=== PATIENT | male | born 1960 | race African-American/Black ===

== ENCOUNTER → 2016-12-17 | Outpatient (CLI) | payer MEDICARE | LOC: RAD 07:24 | PROVIDERS: ATTEND Nurse Practitioner | DX: N18.3 Chronic kidney disease, stage 3 (moderate) (principal) | CPT/HCPCS: 76770 ==

== ENCOUNTER 2017-01-27 13:39 | Emergency (ER) | payer MEDICARE ==
[2017-01-27] MEDS ORDERED: NORMAL SALINE 1000 ML 1,000 ML IV PRN (14:06)
--- NOTE | 2017-01-27 14:06 | ER Document Report ---
ED Medical Screen (RME) - General Chief Complaint: S/S of Possible Stroke Stated Complaint: CONFUSION,SLURRED SPEECH Time seen by provider: 14:05 Mode of Arrival: Ambulatory Information source: Patient Notes: This is a 56-year-old man with a history of diabetes, HIV and hypertension who presents to the emergency room with 2 day history of generalized weakness, slurred speech and confusion. Patient does report productive cough. He denies any fever or shortness of breath. TRAVEL OUTSIDE OF THE [place] IN LAST 30 DAYS: No - Related Data Allergies/Adverse Reactions: No Known Allergies Allergy (Verified 01/27/17 13:46) Past Medical History - Social History Frequency of alcohol use: None Drug Abuse: None - Past Medical History Cardiac Medical History: Reports: Hx Hypertension Endocrine Medical History: Reports: Hx Diabetes Mellitus Type 2 Renal/ Medical History: Denies: Hx Peritoneal Dialysis Infectious Medical History: Reports: Hx HIV Past Surgical History: Reports: Hx Orthopedic Surgery - Right hip - Immunizations Hx Diphtheria, Pertussis, Tetanus Vaccination: Yes Physical Exam - Vital signs Vitals: Temp Pulse Resp BP Pulse Ox 98.9 F 63 18 170/92 H 99 01/27/17 13:46 01/27/17 13:46 01/27/17 13:46 01/27/17 13:46 01/27/17 13:46 Course - Vital Signs Vital signs: Temp Pulse Resp BP Pulse Ox 98.9 F 63 18 170/92 H 99 01/27/17 13:46 01/27/17 13:46 01/27/17 13:46 01/27/17 13:46 01/27/17 13:46
--- NOTE | 2017-01-27 15:27 | ER Document Report ---
ED General - General Time seen by provider: 14:53 Mode of Arrival: Ambulatory Information source: Patient, Relative - spouse TRAVEL OUTSIDE OF THE [place] IN LAST 30 DAYS: No - HPI Onset: Other - Refer to HPI notes Associated symptoms: Weakness Similar symptoms previously: No Recently seen / treated by doctor: No <KESHA ANGULO - Last Filed: 01/27/17 19:18> <HAYLEETRAE SAHU - Last Filed: 01/27/17 21:28> - General Chief Complaint: S/S of Possible Stroke Stated Complaint: CONFUSION,SLURRED SPEECH Notes: Patient is a 56-year-old male patient presenting to the emergency department for 2 days of weakness, decreased motor skills, and slurred speech. Patient states that he has been sleeping on and off for the past 2 days. Patient is having some difficulty with moving his hands. Spouse states the patient has had difficulty completing easy tasks such as eating a sandwich. Patient states he had some blurry vision and shortness of breath along with his chronic dry cough. Patient denies any fever, chest pain, nausea, vomiting, diarrhea, headache, bloody stool or dysuria. Patient denies any new medications or dosage changes to his current medications. Patient has a history of hypertension, diabetes mellitus (insulin dependent) , and HIV. Patient states his last viral load was undetectable and was 2 months ago and his CD4 count was 200. Patient's primary care physician is Dr. Royal Lynne with [facility]. (KESHA ANGULO) - Related Data Allergies/Adverse Reactions: No Known Allergies Allergy (Verified 01/27/17 13:46) Past Medical History - General Information source: Patient, Relative - spouse - Social History Smoking Status: Current Every Day Smoker Chew tobacco use (# tins/day): No Frequency of alcohol use: Rare Drug Abuse: None Family History: None Patient has suicidal ideation: No Patient has homicidal ideation: No - Past Medical History Cardiac Medical History: Reports: Hx Hypertension Endocrine Medical History: Reports: Hx Diabetes Mellitus Type 2 Infectious Medical History: Reports: Hx HIV Past Surgical History: Reports: Hx Orthopedic Surgery - Right hip - Immunizations Hx Diphtheria, Pertussis, Tetanus Vaccination: Yes <KESHA ANGULO - Last Filed: 01/27/17 19:18> Review of Systems - Review of Systems Constitutional: See HPI, Weakness EENT: See HPI, Blurred vision Cardiovascular: No symptoms reported Respiratory: See HPI, Cough, Short of breath Gastrointestinal: No symptoms reported Genitourinary: No symptoms reported Male Genitourinary: No symptoms reported Musculoskeletal: See HPI Skin: No symptoms reported Hematologic/Lymphatic: No symptoms reported Neurological/Psychological: See HPI -: Yes All other systems reviewed and negative <ZACHKESHA REARDON - Last Filed: 01/27/17 19:18> Physical Exam <KESHA ANGULO - Last Filed: 01/27/17 19:18> <TRAE MAURER - Last Filed: 01/27/17 21:28> - Vital signs Vitals: Temp Pulse Resp BP Pulse Ox 98.9 F 63 18 170/92 H 99 01/27/17 13:46 01/27/17 13:46 01/27/17 13:46 01/27/17 13:46 01/27/17 13:46 - Notes Notes: GENERAL: Alert, interacts well. No acute distress. HEAD: Normocephalic, atraumatic. EYES: Pupils equal, round, and reactive to light. Extraocular movements intact. ENT: Oral mucosa moist, tongue midline. NECK: Full range of motion. Supple. Trachea midline. LUNGS: Clear to auscultation bilaterally, no wheezes, rales, or rhonchi. No respiratory distress. HEART: Regular rate and rhythm. No murmurs, gallops, or rubs. ABDOMEN: Soft, non-tender. Non-distended. Bowel sounds present in all 4 quadrants. EXTREMITIES: Moves all 4 extremities spontaneously. No edema, radial and dorsalis pedis pulses 2/4 bilaterally. No cyanosis. NEUROLOGICAL: Alert and oriented x3. Normal speech. Cranial nerves II through XII grossly intact. PSYCH: Normal affect, normal mood. SKIN: Warm, dry, normal turgor. No rashes or lesions noted. (KESHA ANGULO) Course - Laboratory Result Diagrams: 01/27/17 16:46 01/27/17 16:46 <KESHA ANGULO - Last Filed: 01/27/17 19:18> - Laboratory Result Diagrams: 01/27/17 16:46 01/27/17 16:46 <TRAE MAURER - Last Filed: 01/27/17 21:28> - Re-evaluation Re-evalutation: 01/27/17 19:13 CBC unremarkable, coags normal, renal function slightly improved since last visit, glucose elevated 317, no anion gap, no evidence of DKA. Chest x-ray shows no acute process, EKG is nonischemic, CT scan of the head with and without contrast does not show any bleeding or any signs of infection such as toxoplasmosis. NIH stroke scale is 0. No evidence of acute stroke syndrome. Cardiac enzymes are negative. Last viral load was undetectable and last CD4 count was normal as per patient report. At present family states that the patient is confused and is having difficulty carrying out activities of daily living however the patient was able to ambulate in the emergency department, he was able cooperate with finger-nose and feet-hy-opnj testing, he had no slurred speech, he was alert and oriented 3 , I see no evidence of any neurologic deficit at this time. Discussed with family that they do need to follow up as an outpatient for further workup. No indication for admission at this time. Patient does have a primary care physician whom they will see tomorrow. (TRAE MAURER) - Vital Signs Vital signs: Temp Pulse Resp BP Pulse Ox 98.4 F 56 L 16 182/95 H 97 01/27/17 19:36 01/27/17 19:36 01/27/17 19:36 01/27/17 19:36 01/27/17 19:36 - Laboratory Laboratory results interpreted by me: 01/27/17 01/27/17 16:46 16:46 Eosinophils % 7.3 H Absolute Eosinophils 0.7 H BUN 35 H Creatinine 1.40 H Est GFR (Non-Af Amer) 53 L Glucose 317 H Creatine Kinase 181 H - EKG Interpretation by Me Additional EKG results interpreted by me: 01/27/17 19:14 EKG shows sinus rhythm at a rate of 60, normal axis, normal intervals, no ST segment elevations or depressions, no T-wave inversions, there does appear to be left atrial enlargement, no significant change from prior EKG on 09/22/2012 per my interpretation. (TRAE MAURER) Discharge <KESHA ANGULO - Last Filed: 01/27/17 19:18> <TRAE MAURER - Last Filed: 01/27/17 21:28> - Discharge Clinical Impression: Confusion, Type 2 diabetes mellitus with hyperglycemia, with long-term current use of insulin, HIV disease Hypertension Qualifiers: Hypertension type: renovascular hypertension Qualified Code(s): I15.0 - Renovascular hypertension Condition: Stable Disposition: HOME, SELF-CARE Additional Instructions: Please follow up with your primary care physician within the next week. Today your workup only revealed your chronic kidney disease and elevated blood sugar associated with her diabetes. There is no evidence of pneumonia, stroke, heart attack, brain infection or any other cause for confusion. Forms: Elevated Blood Pressure Referrals: PEARL LYNNE FNP [Primary Care Provider] - Follow up in 3-5 days Scribe Attestation: 01/27/17 21:28 I personally performed the services described in the documentation, reviewed and edited the documentation which was dictated to the scribe in my presence, and it accurately records my words and actions. (TRAE MAURER) Scribe Documentation - Scribe Written by Xochilt:: Xochilt Perez, 01/27/17 17:33 acting as scribe for :: Mitchel <KESHA ANGULO - Last Filed: 01/27/17 19:18> ED NIH Stroke Scale - NIH Stroke Scale When completed:: Protocol *: 1. NIH scale should be completed with appropriate accompanying assessment tools. *: 2. The NIH should reflect what the patient is capable of doing and should not be coached by the clinician. 1a. Level of Consciousness: 0=Alert;keenly responsive -: 1=Drowsy -: 2=Obtunded -: 3=Coma/unresponsive or reflex to noxious stimuli. 1a. Responses: 0 1b. Orientation Questions: a. What month is it? -: b. How old are you? -: 0=Answers both questions correctly. -: 1=Answers one question correctly or patient is intubated or has orotracheal trauma. -: 2=Answers neither question correctly. 1b. Responses: 0 1c. Response to commands: a. Open and close eyes? -: b. Refinery Technician and release hand? -: Credit is given despite weakness. Demonstration of task is permitted. Substitute command if hands cannot be used. -: 0=Performs both tasks correctly -: 1=Performs one task correctly -: 2=Performs neither task correctly 1c. Responses: 0 2. Gaze: Establish eye contact and instruct patient to "Follow my finger" -: 0=Normal -: 1=Partial gaze palsy. Gaze is abnormal in one or both eyes, but where forced deviation or total gaze paresis is not present. -: 2=Forced deviation or total gaze paresis. 2. Responses: 0 3. Visual Millard: Sees fingers in all four quadrants. -: 0=No visual loss. -: 1=Partial hemianopsia. -: 2=Complete hemianopsia. -: 3=Bilateral hemianopsia (including Cortical blindness) 3. Responses: 0 4. Facial Movement: Instruct patient to: -: a. Show me your teeth -: b. Raise your eyebrows -: c. Close your eyes -: d. Smile -: 0=Normal symmetrical movement -: 1=Minor paralysis (flattened nasolabial fold, asymmetry on smiling). -: 2=Partial paralysis (total or near total paralysis of lower face). -: 3=Complete paralysis of upper and lower face 4. Responses: 0 5. Motor functions (left arm): Alternate sides and extend each arm with palms down (90 degrees if sitting or 45 degrees for supine). -: 0=No drift;limb holds for full 10 seconds. -: 1=Drift; limb holds but drifts down before full 10 seconds, but does not hit bed. -: 2=Some effort against gravity; limb cannot get to or maintain position. -: 3=No effort against gravity; limb falls. -: 4=No movement. -: UN=Amputation, joint fusion, explain in comments. 5. Responses (left arm): 0 5. Motor Functions (right arm): Alternate sides and extend each arm with palms down (90 degrees if sitting or 45 degrees for supine). -: 0=No drift;limb holds for full 10 seconds. -: 1=Drift; limb holds but drifts down before full 10 seconds, but does not hit bed. -: 2=Some effort against gravity; limb cannot get to or maintain position. -: 3=No effort against gravity; limb falls. -: 4=No movement. -: UN=Amputation, joint fusion, explain in comments. 5. Responses (right arm): 0 6. Motor Functions (left leg): With patient lying supine, alternate sides and extend each leg (30 degrees always while supine). -: 0=No drift, leg holds position for full 5 seconds -: 1=Drift; leg falls before full 5 seconds but does not hit bed. -: 2=Some effort against gravity, leg falls to bed but some effort against gravity. -: 3=No effort against gravity, leg falls to bed immediately. -: 4=No movement. -: UN=Amputation, joint fusion; explain in comments. 6. Responses (left leg): 0 6. Motor Functions (right leg): With patient lying supine, alternate sides and extend each leg (30 degrees always while supine). -: 0=No drift, leg holds position for full 5 seconds -: 1=Drift; leg falls before full 5 seconds but does not hit bed. -: 2=Some effort against gravity, leg falls to bed but some effort against gravity. -: 3=No effort against gravity, leg falls to bed immediately. -: 4=No movement. -: UN=Amputation, joint fusion; explain in comments. 6. Responses (right leg): 0 7. Limb Ataxia: With eyes open instruct patient to: -: a. "Touch your finger to your nose". -: b. "Touch your heel to your obando" -: 0=Absent -: 1=Present in one limb. -: 2=Present in two limbs. -: UN=Amputation or joint fusion; explain in comments. 7. Responses: 0 8. Sensory: Test sensation using pinprick or noxious stimuli. Test as many body parts as possible. -: 0=Normal;no sensory loss -: 1=Mile to moderate sensory loss (patient feels pin prick but is less sharp on affected side). -: 2=Severe or total sensory loss. 8. Responses: 0 9. Best Language: Instruct patient to: -: a. "Describe what you see in this picture." -: b. "Name the items in this picture." -: c. "Read these sentences." -: 0=No aphasia, normal -: 1=Mild to moderate aphasia. -: 2=Severe aphasia -: 3=Mute, global aphasia, no usable speech or auditory comprehension. 9. Responses: 0 10. Articulation, Dysarthia: Instruct patient to: -: "Read these words" or "Repeat these words" -: 0=Normal -: 1=Mild to moderate; patient may slur some words but can be understood without difficulty. -: 2=Severe; patients speech so slurred as to be unintelligible in the absence of dysphasia. -: UN=Intubated or other physical barrier, explain in comments. 10. Responses: 0 11. Extinction or inattention: 0=No abnormality -: 1= Visual, tactile, auditory, spatial, or personal inattention or extinction to bilateral simulation in one or the sensory modalities. -: 2=Profound ashley-inattention or ashley-inattention to more than one modality; does not recognize own hand. 11. Responses: 0 Total Score: 0 <KESHA ANGULO - Last Filed: 01/27/17 19:18>
--- NOTE | 2017-01-27 16:35 | EKG REPORT ---
SEVERITY:- NORMAL ECG - SINUS RHYTHM : Confirmed by: Phani Castellon MD 27-Jan-2017 16:35:18
[2017-01-27 17:07] LABS: PROTHROMBIN TIME 11.7 SEC (11.4-15.4)
[2017-01-27 17:09] LABS: ABSOLUTE BASOPHILS # (AUTO) 0.1 10^3/uL (0.0-0.2); ABSOLUTE EOSINOPHILS # (AUTO) 0.7 10^3/uL (0.0-0.6); ABSOLUTE LYMPHOCYTES (AUTO) 2.1 10^3/uL (0.5-4.7); ABSOLUTE MONOCYTES (AUTO) 0.4 10^3/uL (0.1-1.4); ABSOLUTE NEUT (AUTO) 5.8 10^3/uL (1.7-8.2); BASOPHILS % (AUTO) 0.8 % (0-2); EOSINOPHILS % (AUTO) 7.3 % (0-6); HEMATOCRIT 43.4 % (37.9-51.0); HEMOGLOBIN 14.3 g/dL (13.5-17.0); HGB HCT DIFFERENCE -0.5; MEAN CORPUSCULAR HEMOGLOBIN 30.5 pg (27.0-33.4); MEAN CORPUSCULAR VOLUME 92 fl (80-97); MONOCYTES % (AUTO) 3.9 % (3-13); RED CELL DISTRIBUTION WIDTH 13.9 % (11.5-14.0)
[2017-01-27 17:26] LABS: ALANINE AMINOTRANSFERASE 39 U/L (21-72); ALBUMIN 3.6 g/dL (3.5-5.0); ALKALINE PHOSPHATASE 69 U/L (38-126); ANION GAP 9 (5-19); ASPARTATE AMINO TRANSFERASE 28 U/L (17-59); BILIRUBIN,DIRECT 0.4 mg/dL (0.0-0.4); BILIRUBIN,TOTAL 0.5 mg/dL (0.2-1.3); BLOOD UREA NITROGEN 35 mg/dL (7-20); CALCIUM 9.5 mg/dL (8.4-10.2); CARBON DIOXIDE 24 mmol/L (22-30); CHLORIDE 107 mmol/L (98-107); GLUCOSE 317 mg/dL (75-110); POTASSIUM 4.7 mmol/L (3.6-5.0); SODIUM 140.4 mmol/L (137-145)
[2017-01-27 17:27] LABS: CREATINE KINASE 181 U/L (55-170); TOTAL PROTEIN 6.9 g/dL (6.3-8.2)
[2017-01-27 17:38] LABS: CREATINE KINASE MB 1.18 ng/mL (<4.55)
[2017-01-27 17:41] LABS: TROPONIN I < 0.012 ng/mL
[2017-01-27 19:39] VITALS: BP 182/95
== END 2017-01-27 19:39 | disposition home or self-care (01) ==
LOC: ER 13:39
DX: R41.0 Disorientation, unspecified (principal); E11.65 Type 2 diabetes mellitus with hyperglycemia; B20 Human immunodeficiency virus [HIV] disease; I15.0 Renovascular hypertension; R53.1 Weakness; R47.81 Slurred speech; F17.200 Nicotine dependence, unspecified, uncomplicated; Z79.4 Long term (current) use of insulin
CPT/HCPCS: 93005; 99285; 96360; 36415; 82553; 82550; 85025; 85610; 80053; 84484; 71010; 70470; 93010; J7030

== ENCOUNTER 2017-02-04 13:00 | Inpatient (IN) | payer MEDICARE ==
--- NOTE | 2017-02-04 13:58 | ER Document Report ---
ED General - General Chief Complaint: Low Blood Sugar Stated Complaint: ALTERED MENTAL STATUS Mode of Arrival: Medic TRAVEL OUTSIDE OF THE [place] IN LAST 30 DAYS: No - HPI Notes: 56-year-old male history of HIV and chronic pain syndrome, diabetes presents for excessive somnolence. He has been seen and hospitalized here then hospitalized last week in [place] with no cause found. Patient has been sleeping excessively today his family was unable to wake him up over approximate 2 hour period of time. They have already discontinued morphine. It sounds like he is not eating as much as he is supposed to be as well. When EMS arrived he was somnolent was noted to have a blood sugar of 55. He was given a half amp of D50. His family states he just does not seem right and this is been going on now for a couple of weeks. They reported negative MRI at [place]. No other recent illness otherwise. Family reports seizure-like activity with him moaning and yelling out with stiffness, apparently diaphoretic and mouth was clenched. EMS reported incontinence of urine. Patient currently has no other symptoms or complaints. - Related Data Allergies/Adverse Reactions: No Known Allergies Allergy (Verified 02/04/17 13:12) Past Medical History - Social History Smoking Status: Current Every Day Smoker Frequency of alcohol use: None Drug Abuse: None Family History: None - Past Medical History Cardiac Medical History: Reports: Hx Hypertension Endocrine Medical History: Reports: Hx Diabetes Mellitus Type 2 Renal/ Medical History: Denies: Hx Peritoneal Dialysis Infectious Medical History: Reports: Hx HIV Past Surgical History: Reports: Hx Orthopedic Surgery - Right hip - Immunizations Hx Diphtheria, Pertussis, Tetanus Vaccination: Yes Review of Systems - Review of Systems -: Yes All other systems reviewed and negative Physical Exam - Vital signs Vitals: Temp Pulse Resp BP Pulse Ox 98.6 F 82 20 163/88 H 96 02/04/17 13:03 02/04/17 13:03 02/04/17 13:03 02/04/17 13:03 02/04/17 13:03 - Notes Notes: GENERAL: VS as per nursing doc. then somewhat cachectic male in no acute distress. HEAD: Atraumatic, normocephalic. EYES: Pupils equal round and reactive to light, extraocular movements intact, sclera anicteric, no conjunctival injection or discharge. ENT: Nares patent, oropharynx clear without exudates. Moist mucous membranes. NECK: Normal range of motion, supple, no carotid bruits. LUNGS: Breath sounds clear to auscultation bilaterally and equal. No wheezes rales or rhonchi. HEART: Normal S1S2. Regular rate and rhythm without murmurs. Equal peripheral pulses. ABDOMEN: Soft, non-tender. EXTREMITIES: Normal range of motion. No calf tenderness. Negative Homans. No edema. Chronic right foot drop NEUROLOGICAL: GCS 15, Cranial nerves II-XII intact. Normal visual king. Normal speech without aphasia. No pronator drift. 5/5 RUE strength, 5/5 RLE strength, 5/5 LUE strength, 5/5 LLE strength. No cerebellar abnormalities including normal finger-nose testing. Negative Babinski, 1+= DTR refelexes. PSYCH: Normal mood, normal affect. SKIN: Warm, Dry, no cyanosis, Cap refill < 2 sec. Course - Re-evaluation Re-evalutation: 02/04/17 15:[address] Novak from the hospitalist service and they will admit the patient as an inpatient for endoscopically and seizure. Reviewed records from [place] and there was some nonspecific T2 FLAIR abnormality in the conor region. Discussed findings with the patient and family. His blood sugar was 50 on his chemistries he has eaten now and appears to be coming up. Would consider with his excessive somnolence that he will need to cut back on his oral and insulin diabetic dosing. - Vital Signs Vital signs: Temp Pulse Resp BP Pulse Ox 99.4 F 92 18 146/82 H 95 02/04/17 15:19 02/04/17 15:19 02/04/17 15:19 02/04/17 15:19 02/04/17 15:19 - Laboratory Result Diagrams: 02/04/17 14:30 02/04/17 14:30 Laboratory results interpreted by me: 02/04/17 02/04/17 02/04/17 13:04 14:15 14:30 WBC 16.7 H Seg Neutrophils % 86.3 H Lymphocytes % 9.3 L Absolute Neutrophils 14.4 H BUN Creatinine Glucose POC Glucose 113 H Urine Protein 100 H Urine Blood SMALL H 02/04/17 02/04/17 14:30 15:20 WBC Seg Neutrophils % Lymphocytes % Absolute Neutrophils BUN 30 H Creatinine 1.26 H Glucose 50 L POC Glucose 172 H Urine Protein Urine Blood - EKG Interpretation by Me EKG shows normal: Sinus rhythm - Rate 84, normal sinus rhythm, no clear ischemia Discharge - Discharge Clinical Impression: Encephalopathy, Seizure Condition: Fair Disposition: ADMITTED INPATIENT Admitting Provider: Dr. Novak Unit Admitted: Telemetry Referrals: STACY,CHRISSY KANG [Primary Care Provider] - Follow up as needed
[2017-02-04 14:29] LABS: APPEARANCE,URINE CLEAR; BILIRUBIN,URINE NEGATIVE (NEGATIVE); GLUCOSE, URINE NEGATIVE (NEGATIVE); KETONES,URINE NEGATIVE (NEGATIVE); LEUKOCYTE ESTERASE,URINE NEGATIVE (NEGATIVE); NITRITE,URINE NEGATIVE (NEGATIVE); PROTEIN,URINE 100 mg/dL (NEGATIVE); URINE SPECIFIC GRAVITY 1.012; UROBILINOGEN,URINE NEGATIVE mg/dL (<2.0)
[2017-02-04 14:54] LABS: ABSOLUTE BASOPHILS # (AUTO) 0.1 10^3/uL (0.0-0.2); ABSOLUTE EOSINOPHILS # (AUTO) 0.1 10^3/uL (0.0-0.6); ABSOLUTE LYMPHOCYTES (AUTO) 1.5 10^3/uL (0.5-4.7); ABSOLUTE MONOCYTES (AUTO) 0.5 10^3/uL (0.1-1.4); ABSOLUTE NEUT (AUTO) 14.4 10^3/uL (1.7-8.2); BASOPHILS % (AUTO) 0.5 % (0-2); EOSINOPHILS % (AUTO) 0.7 % (0-6); HEMATOCRIT 43.1 % (37.9-51.0); HEMOGLOBIN 14.3 g/dL (13.5-17.0); HGB HCT DIFFERENCE -0.2; LYMPHOCYTES % (AUTO) 9.3 % (13-45); MEAN CORPUSCULAR HEMOGLOBIN 30.2 pg (27.0-33.4); MEAN CORPUSCULAR HGB CONC 33.1 g/dL (32.0-36.0); MEAN CORPUSCULAR VOLUME 92 fl (80-97); MONOCYTES % (AUTO) 3.2 % (3-13); RED BLOOD COUNT 4.72 10^6/uL (4.35-5.55); RED CELL DISTRIBUTION WIDTH 13.7 % (11.5-14.0); SEGMENTED NEUTROPHILS % (AUTO) 86.3 % (42-78); WHITE BLOOD COUNT 16.7 10^3/uL (4.0-10.5)
[2017-02-04 15:14] LABS: ALANINE AMINOTRANSFERASE 32 U/L (21-72); ALBUMIN 3.8 g/dL (3.5-5.0); ALKALINE PHOSPHATASE 62 U/L (38-126); ANION GAP 14 (5-19); ASPARTATE AMINO TRANSFERASE 29 U/L (17-59); BILIRUBIN,DIRECT 0.2 mg/dL (0.0-0.4); BILIRUBIN,TOTAL 0.4 mg/dL (0.2-1.3); BLOOD UREA NITROGEN 30 mg/dL (7-20); CARBON DIOXIDE 24 mmol/L (22-30); CHLORIDE 105 mmol/L (98-107); CREATININE RESULT 1.26 mg/dL (0.52-1.25); GLUCOSE 50 mg/dL (75-110); POTASSIUM 4.5 mmol/L (3.6-5.0); SODIUM 142.7 mmol/L (137-145); TOTAL PROTEIN 6.6 g/dL (6.3-8.2)
[2017-02-04] MEDS ORDERED: INSULIN LISPRO 100 UNIT/ML 3 ML VIAL SUBCUT PRN ×2 (15:53→17:28)
[2017-02-04] MEDS ORDERED: DEXTROSE 40% GEL 15 GM TUBE PO PRN ×2 (15:53)
[2017-02-04] MEDS ORDERED: DEXTROSE 50%-WATER 25 GM/50 ML DISP.SYRIN IV PRN ×2 (15:53)
[2017-02-04] MEDS ORDERED: GLUCAGON,HUMAN RECOMB 1 MG INJ IM PRN (15:53)
[2017-02-04] MEDS ORDERED: ONDANSETRON HCL INJ/PF 4 MG/2 ML SDV IV PRN (15:54)
[2017-02-04] MEDS: NORMAL SALINE 1000 ML 1,000 ML IV PRN (17:08)
[2017-02-04] MEDS ORDERED: HYDRALAZINE HCL INJ/PF 20 MG/1 ML SDV IV PRN (17:16)
[2017-02-04] MEDS ORDERED: VANCOMYCIN HCL 0 MG in DEXTROSE 5%-WATER 250 ML IV NR (17:30)
[2017-02-04] MEDS ORDERED: ENOXAPARIN SODIUM INJ 40 MG/0.4 ML DISP.SYRIN SUBCUT ONE (17:30)
--- NOTE | 2017-02-04 17:31 | PDOC H&P ---
History of Present Illness Admission Date/PCP: 02/04/17 15:54 PEARL KUMAR, ORDAINED MINISTER Patient complains of: Confusion, seizure History of Present Illness: ZEYNEP PENDLETON is a 56 year old male with several weeks history of intermittent confusion for which she has been seen at [facility] as well as [facility]. Patient had episode of confusion today and associated seizure. He had a mild headache after seizure. He has not been having headaches prior to that. He has noted chronic fatigue for the past several weeks, nasal congestion, cough. He denies photophobia. He has chronic neck and back pain that is not worse than usual. Patient medical history is complicated by HIV disease for which he is on antiretrovirals. His last CD4 count was on 08/14/2016 which time it was 487. Patient also has insulin-dependent diabetes and was noted to be hypoglycemic today upon evaluation for seizure and altered mental status. His blood glucose was 53. He does have a history of chronic pain with chronic opiate dependence but his states that he has not been on narcotic pain medication since being discharged from the hospital last week. His hospital records from [facility] are reviewed and for the most part are unremarkable. The MRI of his brain did show one small area of abnormal signal in the conor that could represent small vessel disease, but differential could include encephalitis. Past Medical History Cardiac Medical History: Reports: Hypertension Endocrine Medical History: Reports: Diabetes Mellitus Type 2 Infectious Medical History: Reports: HIV Past Surgical History Past Surgical History: Reports: Orthopedic Surgery - Right hip Social History Information Source: Patient, Relative Lives with: Spouse/Significant other Smoking Status: Current Every Day Smoker Frequency of Alcohol Use: None Hx Recreational Drug Use: No Hx Prescription Drug Abuse: No - Advance Directive Resuscitation Status: Full Code Family History Family History: None Parental Family History Reviewed: Yes Children Family History Reviewed: Yes Sibling(s) Family History Reviewed.: Yes Medication/Allergy Home Medications: Duloxetine HCl [Cymbalta] 60 mg PO DAILY 02/04/17 Etravirine [Intelence] 200 mg PO BID 02/04/17 Hydrochlorothiazide 25 mg PO DAILY 02/04/17 Insulin Glargine,Hum.rec.anlog [Toujeo Solostar] 28 unit SQ DAILY 02/04/17 Lisinopril [Prinivil 10 mg Tablet] 10 mg PO DAILY 02/04/17 Lopinavir/Ritonavir [Kaletra 200-50 mg Tablet] 2 each PO Q12 02/04/17 Metformin HCl [Metformin HCl ER] 500 mg PO DAILY 02/04/17 Pregabalin [Lyrica 100 Mg Capsule] 100 mg PO Q8 02/04/17 Raltegravir Potassium [Isentress 400 mg Tablet] 400 mg PO BID 02/04/17 Allergies/Adverse Reactions: No Known Allergies Allergy (Verified 02/04/17 13:12) Review of Systems Constitutional: PRESENT: fatigue, weight loss - Over the course of the past several years. ABSENT: chills, fever(s), headache(s), weight gain Eyes: ABSENT: visual disturbances Ears: ABSENT: hearing changes Cardiovascular: ABSENT: chest pain, dyspnea on exertion, edema, orthropnea, palpitations Respiratory: PRESENT: cough. ABSENT: hemoptysis Gastrointestinal: ABSENT: abdominal pain, constipation, diarrhea, hematemesis, hematochezia, nausea, vomiting Genitourinary: ABSENT: dysuria, hematuria Musculoskeletal: ABSENT: joint swelling Integumentary: ABSENT: rash, wounds Neurological: PRESENT: confusion, convulsions. ABSENT: abnormal gait, abnormal speech, dizziness, focal weakness, syncope Psychiatric: ABSENT: anxiety, depression, homidical ideation, suicidal ideation Endocrine: ABSENT: cold intolerance, heat intolerance, polydipsia, polyuria Hematologic/Lymphatic: ABSENT: easy bleeding, easy bruising Physical Exam Vital Signs: Temp Pulse Resp BP Pulse Ox 99.4 F 92 18 146/82 H 95 02/04/17 15:19 02/04/17 15:19 02/04/17 15:19 02/04/17 15:19 02/04/17 15:19 PHYSICAL EXAM: GENERAL: Appears well, no acute distress, thin/frail HEENT: Normocephalic, no scleral icterus, conjunctiva clear, EOEM intact, PERRLA , moist mucous membranes NECK: trachea midline, no thyromegally RESPIRATORY: Clear to auscultation, no wheezes/rhonchi CARDIAC: Regular rate and rhythm, no murmur/elli/rub ABDOMEN: Soft, no distension, no tenderness, no guarding, normal bowel sounds, negative Rainey sign RECTAL: deferred : deferred EXTREMITIES: No edema, cyanosis, clubbing MUSCULOSKELETAL: No joint swelling or deformity VASCULAR: normal peripheral pulses NEUROLOGIC: Alert, oriented to person/place/time, normal speech, cranial nerves grossly intact, 5/5 strength in all extremities, tactile sensation intact in all extremities. No nuchal rigidity SKIN: No rash, no wounds, no worrisome skin lesions PSYCHIATRIC: Normal mood, unusual affect Results Laboratory Results: Labs- All tests 24 hr 02/04/17 02/04/17 02/04/17 13:04 14:15 14:30 WBC 16.7 H RBC 4.72 Hgb 14.3 Hct 43.1 MCV 92 MCH 30.2 MCHC 33.1 RDW 13.7 Plt Count 267 Seg Neutrophils % 86.3 H Lymphocytes % 9.3 L Monocytes % 3.2 Eosinophils % 0.7 Basophils % 0.5 Absolute Neutrophils 14.4 H Absolute Lymphocytes 1.5 Absolute Monocytes 0.5 Absolute Eosinophils 0.1 Absolute Basophils 0.1 Sodium Potassium Chloride Carbon Dioxide Anion Gap BUN Creatinine Est GFR ( Amer) Est GFR (Non-Af Amer) Glucose POC Glucose 113 H Calcium Total Bilirubin Direct Bilirubin Indirect Bilirubin Neonat Total Bilirubin AST ALT Alkaline Phosphatase Total Protein Albumin Urine Color YELLOW Urine Appearance CLEAR Urine pH 5.0 Ur Specific [place] 1.012 Urine Protein 100 H Urine Glucose (UA) NEGATIVE Urine Ketones NEGATIVE Urine Blood SMALL H Urine Nitrite NEGATIVE Urine Bilirubin NEGATIVE Urine Urobilinogen NEGATIVE Ur Leukocyte Esterase NEGATIVE Urine WBC (Auto) 1 Urine RBC (Auto) 1 Squamous Epi Cells Auto <1 Urine Mucus (Auto) RARE Urine Ascorbic Acid NEGATIVE 02/04/17 02/04/17 14:30 15:20 WBC RBC Hgb Hct MCV MCH MCHC RDW Plt Count Seg Neutrophils % Lymphocytes % Monocytes % Eosinophils % Basophils % Absolute Neutrophils Absolute Lymphocytes Absolute Monocytes Absolute Eosinophils Absolute Basophils Sodium 142.7 Potassium 4.5 Chloride 105 Carbon Dioxide 24 Anion Gap 14 BUN 30 H Creatinine 1.26 H Est GFR ( Amer) > 60 Est GFR (Non-Af Amer) > 60 Glucose 50 L POC Glucose 172 H Calcium 9.0 Total Bilirubin 0.4 Direct Bilirubin 0.2 Indirect Bilirubin Not Reportable Neonat Total Bilirubin Not Reportable AST 29 ALT 32 Alkaline Phosphatase 62 Total Protein 6.6 Albumin 3.8 Urine Color Urine Appearance Urine pH Ur Specific [place] Urine Protein Urine Glucose (UA) Urine Ketones Urine Blood Urine Nitrite Urine Bilirubin Urine Urobilinogen Ur Leukocyte Esterase Urine WBC (Auto) Urine RBC (Auto) Squamous Epi Cells Auto Urine Mucus (Auto) Urine Ascorbic Acid Impressions: Head CT 02/04/17 00:00 IMPRESSION: INFLAMMATORY CHANGES RIGHT MAXILLARY SINUS. OTHERWISE, NORMAL BRAIN CT WITHOUT CONTRAST. Chest X-Ray 02/04/17 15:52 IMPRESSION: NO ACUTE RADIOGRAPHIC FINDING IN THE CHEST. Assessment & Plan - Diagnosis (1) Encephalopathy Is this a current diagnosis for this admission?: YesPlan: Exact etiology not clear. Possibly related to hypoglycemia and/or seizure. Patient's medical history is somewhat complicated however given HIV status of the things must be considered such as encephalitis. Particularly given the fact that patient had findings on MRI from [facility] that showed abnormal signal in the conor suggestive of small vessel disease versus encephalitis. Check lumbar puncture. Head CT shows no acute process. Given patient's poor nutritional status I would like to start thiamine supplementation. I would like to check TSH, B-12 level. Medications/polypharmacy may be contributing. Medications that can contribute to altered mental status include opiate pain medications, Lyrica, Cymbalta. Nothing by mouth status. IV fluids for now. Resume oral intake after lumbar puncture. (2) Seizure Is this a current diagnosis for this admission?: Yes (3) Leukocytosis Is this a current diagnosis for this admission?: YesPlan: Cover empirically for meningitis/encephalitis given altered mental status, leukocytosis, seizure, HIV status. Start IV Rocephin, IV ampicillin, IV vancomycin, IV acyclovir. Check lumbar puncture. Chest x-ray negative. Urinalysis negative. (4) Hypoglycemia Is this a current diagnosis for this admission?: YesPlan: Hold Lantus. Monitor blood glucose to 2 hours while patient is nothing by mouth for lumbar puncture. (5) Insulin dependent diabetes mellitus Is this a current diagnosis for this admission?: Yes (6) HIV (human immunodeficiency virus infection) Is this a current diagnosis for this admission?: YesPlan: Continue HIV medications. Repeat CD4 count and viral load. (7) Hypertension Is this a current diagnosis for this admission?: YesPlan: Hold lisinopril for now. When necessary IV hydralazine. (8) Chronic pain Is this a current diagnosis for this admission?: YesPlan: Patient has reportedly been off opiate medicines since recent admission to [facility] last week. Continue Lyrica and Cymbalta. - Time Time Spent: Greater than 70 Minutes Anticipated discharge: Home
[2017-02-04] MEDS ORDERED: NICOTINE 14 MG/24 HR PATCH.TD24 TD ONE (17:45)
[2017-02-04] MEDS ORDERED: CEFTRIAXONE 2 GM/D5W RTU 2 GM/50 ML RTUPB IV SCH (18:00)
[2017-02-04] MEDS ORDERED: (PENDING PHARMACY ID) (Etravirine [Intelence] 200 MG) PO SCH (18:00)
[2017-02-04] MEDS ORDERED: CEFTRIAXONE 1 GM/D5W RTU 1 GM/50 ML RTUPB IV SCH (18:00)
[2017-02-04 18:28] LABS: PROTHROMBIN TIME 12.4 SEC (11.4-15.4)
[2017-02-04 18:29] LABS: PARTIAL THROMBOPLASTIN TIME 29.2 SEC (23.5-35.8)
[2017-02-04] MEDS: HYDROMORPHONE HCL INJ/PF 2 MG/ML AMPULE IV PRN ×2 (18:51→23:24)
[2017-02-04] MEDS ORDERED: VANCOMYCIN HCL 1,000 MG in DEXTROSE 5%-WATER 250 ML IV ONE (20:00)
--- NOTE | 2017-02-04 20:37 | EKG REPORT ---
SEVERITY:- BORDERLINE ECG - SINUS RHYTHM CONSIDER INFERIOR INFARCT : Confirmed by: María Lawrence 04-Feb-2017 20:36:29
[2017-02-04] MEDS: PREGABALIN 100 MG CAPSULE PO SCH (21:47)
[2017-02-04] MEDS: LOPINAVIR/RITONAVIR 200-50 MG TABLET PO SCH (21:47)
[2017-02-04] MEDS: AMPICILLIN SODIUM 1.5 GM in NORMAL SALINE 100 ML IV SCH (21:47)
[2017-02-04] MEDS: ACYCLOVIR SODIUM 750 MG in NORMAL SALINE 250 ML IV SCH (21:48)
[2017-02-04] MEDS: RALTEGRAVIR POTASSIUM 400 MG TABLET PO SCH (22:40)
[2017-02-04 23:19] LABS: APPEARANCE,URINE CLEAR; BILIRUBIN,URINE NEGATIVE (NEGATIVE); GLUCOSE, URINE NEGATIVE (NEGATIVE); KETONES,URINE NEGATIVE (NEGATIVE); LEUKOCYTE ESTERASE,URINE NEGATIVE (NEGATIVE); NITRITE,URINE NEGATIVE (NEGATIVE); PROTEIN,URINE 100 mg/dL (NEGATIVE); URINE SPECIFIC GRAVITY 1.012; UROBILINOGEN,URINE NEGATIVE mg/dL (<2.0)
[2017-02-04 23:34] LABS: URINE BARBITURATES SCREEN NEGATIVE; URINE METHADONE SCREEN NEGATIVE; URINE PHENCYCLIDINE SCREEN NEGATIVE
[2017-02-04 23:53] LABS: URINE OPIATES LOW UNCONFIRMED POSITIVE
[2017-02-05] MEDS: AMPICILLIN SODIUM 1.5 GM in NORMAL SALINE 100 ML IV SCH ×4 (02:48→21:23)
[2017-02-05] MEDS: PREGABALIN 100 MG CAPSULE PO SCH ×3 (05:31→21:23)
[2017-02-05] MEDS: ACYCLOVIR SODIUM 750 MG in NORMAL SALINE 250 ML IV SCH ×3 (05:31→21:23)
[2017-02-05 07:19] LABS: ABSOLUTE BASOPHILS # (AUTO) 0.1 10^3/uL (0.0-0.2); ABSOLUTE EOSINOPHILS # (AUTO) 0.4 10^3/uL (0.0-0.6); ABSOLUTE LYMPHOCYTES (AUTO) 1.4 10^3/uL (0.5-4.7); ABSOLUTE MONOCYTES (AUTO) 0.4 10^3/uL (0.1-1.4); ABSOLUTE NEUT (AUTO) 6.6 10^3/uL (1.7-8.2); BASOPHILS % (AUTO) 0.7 % (0-2); EOSINOPHILS % (AUTO) 4.1 % (0-6); HEMATOCRIT 37.3 % (37.9-51.0); HGB HCT DIFFERENCE 1.7; LYMPHOCYTES % (AUTO) 15.6 % (13-45); MEAN CORPUSCULAR HEMOGLOBIN 31.2 pg (27.0-33.4); MEAN CORPUSCULAR HGB CONC 34.7 g/dL (32.0-36.0); MEAN CORPUSCULAR VOLUME 90 fl (80-97); MONOCYTES % (AUTO) 4.8 % (3-13); RED BLOOD COUNT 4.15 10^6/uL (4.35-5.55); RED CELL DISTRIBUTION WIDTH 13.6 % (11.5-14.0); SEGMENTED NEUTROPHILS % (AUTO) 74.8 % (42-78); WHITE BLOOD COUNT 8.9 10^3/uL (4.0-10.5)
[2017-02-05 07:38] LABS: ANION GAP 7 (5-19); BLOOD UREA NITROGEN 33 mg/dL (7-20); CALCIUM 8.9 mg/dL (8.4-10.2); CARBON DIOXIDE 27 mmol/L (22-30); CHLORIDE 104 mmol/L (98-107); GLUCOSE 327 mg/dL (75-110); MAGNESIUM 1.8 mg/dL (1.6-2.3); POTASSIUM 4.6 mmol/L (3.6-5.0); SODIUM 137.9 mmol/L (137-145)
[2017-02-05 07:55] LABS: FREE T3 4.05 pg/mL (2.77-5.27)
[2017-02-05 08:08] LABS: THYROID STIMULATING HORMONE 2.37 uIU/mL (0.47-4.68)
[2017-02-05] MEDS: CEFTRIAXONE 2 GM/D5W RTU 2 GM/50 ML RTUPB IV SCH (09:30)
[2017-02-05] MEDS: DULOXETINE HCL 30 MG CAPSULE.DR PO SCH (09:34)
[2017-02-05] MEDS: RALTEGRAVIR POTASSIUM 400 MG TABLET PO SCH ×2 (09:34→21:23)
[2017-02-05] MEDS: LOPINAVIR/RITONAVIR 200-50 MG TABLET PO SCH ×2 (09:35→21:22)
[2017-02-05] MEDS: THIAMINE HCL 100 MG TABLET PO SCH (09:35)
[2017-02-05] MEDS: NICOTINE 14 MG/24 HR PATCH.TD24 TD SCH (09:36)
[2017-02-05] MEDS: HYDROMORPHONE HCL INJ/PF 2 MG/ML AMPULE IV PRN ×3 (09:50→23:06)
[2017-02-05] MEDS: NORMAL SALINE 1000 ML 1,000 ML IV PRN (09:56)
[2017-02-05] MEDS: VANCOMYCIN HCL 750 MG in DEXTROSE 5%-WATER 250 ML IV SCH ×2 (11:22→21:24)
--- NOTE | 2017-02-05 11:56 | Physician Advisory Note ---
Physician Advisor ProgressNote .: Pursuant to the plan for [facility], I have reviewed the medical record for this patient. Physician Advisor Statement: Possible documentation opportunities if attending agrees: 1. "intravascular volume depletion" 2. "stage 2 decub of sacrum, present on adm" [documented by nurse Adm assessment] 3. "suspected protein-calorie malnutrition [state mild, mod, or severe] with BMI 20.7, cachexia, ___ pounds wt loss over ____mo.s/yrs, [?appetite loss, ]" [if possible, give specifics on intake, wt loss, loss of SQ fat & muscle mass, diminished hand net developer strength, & clinical importance such as (A) nutritional assessment ordered, (B) modified diet or supplements ordered, (C) additional labs ordered, (D) prolonged wound healing time, (E) delayed infxn clearance] As always, if concerned about any unstable VS or abnormal labs, please comment on them - what bad things they might indicate, why they concern you - & note what doing about them. Please also document each day the potential clinical problems you are concerned could occur if pt not kept in hospital for tx at this time. (These points are downey - if present in each note, attending's status decision should be sufficiently supported.) Discussion: 56yo male w/ chronic co-morbidities including (+)HIV status w/last CD-4 ct 487, DM-2, HTN, chronic pain, chr opiate dependence, tobacco dependence/abuse, chronic Rt foot drop, reported wt loss over a few yrs - presented 5/15 PM to ED w/persistent excessive somnolence, AMS, already eval' d in hosp x 2 in past couple wks w/out cause found, not eating much, no longer taking morphine by report, episode 02/04 of sz-like activity w/urinary incontinence & clenched mouth. (+) T98.6, HR 82-92, RR18-20, BP 163/88,WBC 16.7, HGb 14.3, plts 267, Na 142.7, K 4.5, bicarb 24, BUN 30, Cr 1.26, glc 50, U/A w/sm bld, 100 pro. CXR (-) acute , CT = inflammatory changes Rt maxillary sinus but otherwise nl. Attending ordered LP, IV Rocephin, Amp, vanc, Acyclovir, IVF x 1L, thiamine, TSH /B12 levels, holding Lantus & lisinopril, continuing Lyrica/Cymbalta, + giving prn IV Dilaudid but no long-acting opioid, UDS, A1C, HIV RNA/CD4/CD8. Status: Pt came in w/prominent leukocytosis, mild tachycardia at times, AMS, & suspected seizure activity. Outside hospital MRI of brain showed abnormality that could suggest encephalitis. Attending apparently quite concerned for encephalitis. Pt started on multiple IV abx to cover for possible encephalitis & subsequent WBC is improved, but dx is not yet confirmed & etiologic agent is not clarified. LP unable to be completed sufficiently for adequate specimens, must be repeated after IVF rehydration. Then of course tests/cx of CSF must be awaited. Pt needing repeated prn Dilaudid. Blood sugars quite unstable - as low as 44 last pm, but now up to 300s as last Lantus dose has worn off. Needs further adjustment of tx acutely. Tx & monitoring in inpatient hospital setting for at least a 2nd MN is medically reasonable & necessary to protect pt's health, safety, & medical condition. Appropriate for Inpt status. Thanks for your help with documentation accuracy/specificity improvement! Rain Freire MD [facility] Physician Advisor, Fellow of Hospital Medicine
[2017-02-05 13:42] LABS: GLUCOSE,CSF 168 mg/dL (40-70)
[2017-02-05 14:12] LABS: APPEARANCE ALL TUBES CLEAR; RBC AVERAGE 18.5; RBC DILUENT USED NONE USED; RBC DILUTION FACTOR 1; RBC SIDE 1 17; RBC SIDE 2 20; TOTAL RBC SQUARES COUNTED 225
[2017-02-05 14:13] LABS: WHITE BLOOD CELL,CSF 2 /uL (0-5)
[2017-02-05 15:31] LABS: CSF CULTURED REQUIRED CSF CULTURE ORDERED (CSFY); H. INFLUENZAE TYPE B AG NEGATIVE (NEGATIVE); S. PNEUMONIAE AG NEGATIVE (NEGATIVE); STREP. GROUP B AG NEGATIVE (NEGATIVE)
[2017-02-05] MEDS: ENOXAPARIN SODIUM INJ 40 MG/0.4 ML DISP.SYRIN SUBCUT SCH (15:43)
[2017-02-05] MEDS: INSULIN GLARGINE,HUM.REC.ANLOG 300 UNIT/3 ML INSULN.PEN SUBCUT SCH (15:44)
--- NOTE | 2017-02-05 15:46 | PDOC PROGRESS REPORT ---
Subjective Progress Note for:: 02/05/17 Subjective:: Patient continues to complain of difficulty thinking, speech difficulty, difficulty with coordination of his hands. He also complains of right hip pain recently. He has a history of trauma to this area. He denies headache, photophobia, fever, chills. Physical Exam Vital Signs: Temp Pulse Resp BP Pulse Ox 98.5 F 74 20 139/70 H 94 02/05/17 07:33 02/05/17 07:33 02/05/17 07:33 02/05/17 07:33 02/05/17 07:33 Intake & Output 02/04/17 02/05/17 02/06/17 06:59 06:59 06:59 Intake Total 2450 Output Total 200 Balance 2250 Weight 63.5 kg GENERAL: No acute distress, thin/frail HEENT: Conjunctiva clear, nonicteric, moist mucous membranes, no JVD, midline trachea RESPIRATORY: Clear to auscultation bilaterally, no wheezes, no rhonchi CARDIAC: Regular rate and rhythm, no murmurs/gallops/rubs ABDOMEN: Soft, nondistended, nontender, positive bowel sounds, no rebound, no guarding EXTREMETIES: No edema, cyanosis, clubbing NEUROLOGIC: Alert, oriented to person/place/time, CN's grossly intact, no focal deficits SKIN: No rash, wounds PSYCH: Normal mood, normal affect Results Laboratory Results: 02/05/17 07:05 02/05/17 07:05 02/04/17 02/05/17 02/05/17 22:45 07:05 07:05 WBC 8.9 RBC 4.15 L Hgb 13.0 L Hct 37.3 L MCV 90 MCH 31.2 MCHC 34.7 RDW 13.6 Plt Count 246 Seg Neutrophils % 74.8 Lymphocytes % 15.6 Monocytes % 4.8 Eosinophils % 4.1 Basophils % 0.7 Absolute Neutrophils 6.6 Absolute Lymphocytes 1.4 Absolute Monocytes 0.4 Absolute Eosinophils 0.4 Absolute Basophils 0.1 Sodium 137.9 Potassium 4.6 Chloride 104 Carbon Dioxide 27 Anion Gap 7 BUN 33 H Creatinine 1.40 H Est GFR ( Amer) > 60 Est GFR (Non-Af Amer) 53 L Glucose 327 H Calcium 8.9 Magnesium 1.8 C-Reactive Protein Vitamin B12 732.0 TSH Free T4 Free T3 pg/mL Urine Color STRAW Urine Appearance CLEAR Urine pH 5.0 Ur Specific [place] 1.012 Urine Protein 100 H Urine Glucose (UA) NEGATIVE Urine Ketones NEGATIVE Urine Blood SMALL H Urine Nitrite NEGATIVE Ur Leukocyte Esterase NEGATIVE Urine WBC (Auto) 0 02/05/17 02/05/17 07:05 07:05 WBC RBC Hgb Hct MCV MCH MCHC RDW Plt Count Seg Neutrophils % Lymphocytes % Monocytes % Eosinophils % Basophils % Absolute Neutrophils Absolute Lymphocytes Absolute Monocytes Absolute Eosinophils Absolute Basophils Sodium Potassium Chloride Carbon Dioxide Anion Gap BUN Creatinine Est GFR ( Amer) Est GFR (Non-Af Amer) Glucose Calcium Magnesium C-Reactive Protein 14.8 H Vitamin B12 TSH 2.37 Free T4 0.96 Free T3 pg/mL 4.05 Urine Color Urine Appearance Urine pH Ur Specific [place] Urine Protein Urine Glucose (UA) Urine Ketones Urine Blood Urine Nitrite Ur Leukocyte Esterase Urine WBC (Auto) Impressions: Head CT 02/04/17 00:00 IMPRESSION: INFLAMMATORY CHANGES RIGHT MAXILLARY SINUS. OTHERWISE, NORMAL BRAIN CT WITHOUT CONTRAST. Chest X-Ray 02/04/17 15:52 IMPRESSION: NO ACUTE RADIOGRAPHIC FINDING IN THE CHEST. Guidance Fluoroscopy 02/05/17 00:00 IMPRESSION: Lumbar puncture under fluoroscopy. No immediate complication. Lumbar Puncture 02/05/17 09:08 IMPRESSION: Lumbar puncture under fluoroscopy. No immediate complication. Assessment & Plan - Diagnosis (1) Encephalopathy Is this a current diagnosis for this admission?: YesPlan: Exact etiology not clear. Possibly related to hypoglycemia and/or seizure. Patient's medical history is somewhat complicated however given HIV status of the things must be considered such as encephalitis. Particularly given the fact that patient had findings on MRI from [facility] that showed abnormal signal in the conor suggestive of small vessel disease versus encephalitis. I would like to repeat MRI of the brain. Preliminary CSF results show elevated glucose, elevated protein, no white blood cells, no bacteria, negative Linda ink. EEG pending. Head CT shows no acute process. Given patient's poor nutritional status I will continue thiamine supplementation. Normal TSH, B-12 level. Medications/polypharmacy may be contributing. Medications that can contribute to altered mental status include opiate pain medications, Lyrica, Cymbalta. Encephalitis also concerned given patient's history of HIV, CSF findings, previous MRI findings. I will probably need to discuss this with infectious disease once all data is back. (2) Seizure Is this a current diagnosis for this admission?: Yes (3) Leukocytosis Is this a current diagnosis for this admission?: YesPlan: Cover empirically for meningitis/encephalitis given altered mental status, leukocytosis, seizure, HIV status. Continue IV Rocephin, IV ampicillin, IV vancomycin, IV acyclovir. Discuss lumbar puncture results with infectious disease. Chest x-ray negative. Urinalysis negative. (4) Hypoglycemia Is this a current diagnosis for this admission?: YesPlan: Continue to monitor Accu-Cheks after restarting Lantus. (5) Insulin dependent diabetes mellitus Is this a current diagnosis for this admission?: YesPlan: Restart Lantus 25 units daily. Sliding scale insulin coverage. Hemoglobin A1c 7.1. (6) HIV (human immunodeficiency virus infection) Is this a current diagnosis for this admission?: YesPlan: Continue HIV medications. Repeat CD4 count and viral load pending. Patient is followed by Nuha Ward of infectious disease in [facility]. (7) Hypertension Is this a current diagnosis for this admission?: YesPlan: Lisinopril 10 mg daily. When necessary IV hydralazine. (8) Chronic pain Is this a current diagnosis for this admission?: YesPlan: Continue Cymbalta. Continue Lyrica. (9) Right hip pain Is this a current diagnosis for this admission?: YesPlan: Check sedimentation rate, C-reactive protein, MRI of right hip. - Time Time Spent with patient: 35 or more minutes
[2017-02-05] MEDS: ACETAMINOPHEN 325 MG TABLET PO PRN (21:24)
[2017-02-06] MEDS: AMPICILLIN SODIUM 1.5 GM in NORMAL SALINE 100 ML IV SCH ×4 (03:06→22:20)
[2017-02-06] MEDS: ACYCLOVIR SODIUM 750 MG in NORMAL SALINE 250 ML IV SCH ×3 (06:00→22:31)
[2017-02-06] MEDS: PREGABALIN 100 MG CAPSULE PO SCH ×3 (06:00→22:21)
[2017-02-06] MEDS: ENOXAPARIN SODIUM INJ 40 MG/0.4 ML DISP.SYRIN SUBCUT SCH (08:00)
[2017-02-06] MEDS: NICOTINE 14 MG/24 HR PATCH.TD24 TD SCH (10:00)
[2017-02-06] MEDS: RALTEGRAVIR POTASSIUM 400 MG TABLET PO SCH ×2 (10:00→18:00)
[2017-02-06] MEDS: LOPINAVIR/RITONAVIR 200-50 MG TABLET PO SCH ×2 (10:00→22:21)
[2017-02-06] MEDS: DULOXETINE HCL 30 MG CAPSULE.DR PO SCH (10:00)
[2017-02-06] MEDS: CEFTRIAXONE 2 GM/D5W RTU 2 GM/50 ML RTUPB IV SCH (10:00)
[2017-02-06] MEDS: VANCOMYCIN HCL 750 MG in DEXTROSE 5%-WATER 250 ML IV SCH ×2 (10:00→22:31)
[2017-02-06] MEDS: THIAMINE HCL 100 MG TABLET PO SCH (10:00)
[2017-02-06] MEDS: LISINOPRIL 10 MG TABLET PO SCH (10:00)
[2017-02-06] MEDS: INSULIN GLARGINE,HUM.REC.ANLOG 300 UNIT/3 ML INSULN.PEN SUBCUT SCH (13:00)
[2017-02-06] MEDS ORDERED: HYDROCHLOROTHIAZIDE 25 MG TABLET ONE (13:22)
[2017-02-06] MEDS ORDERED: OXYCODONE HCL IR 5 MG TABLET ONE (13:23)
[2017-02-06 16:37] LABS: ABSOLUTE CD 4 HELPER 329 /uL (359-1519); CD BASOPHILS 1 % (.); CD EOSINOPHILS 4 % (.); CD MONOCYTES 5 % (.); CD NEUTROPHILS 73 % (.); HEMATOCRIT . 38.3 % (37.5-51.0); HEMOGLOBIN 12.4 g/dL (12.6-17.7); IMMATURE GRANULOCYTES 0 % (.); LYMPHS(ABSOLUTE) 1.4 x10E3/uL (0.7-3.1); MCH 29.5 pg (26.6-33.0); MCHC 32.4 g/dL (31.5-35.7); MCV 91 fL (79-97); NEUTROPHILS(ABSOLUTE) 6.3 x10E3/uL (1.4-7.0); PLATELETS 264 x10E3/uL (150-379); RBC 4.21 x10E6/uL (4.14-5.80); WBC 8.5 x10E3/uL (3.4-10.8)
[2017-02-06] MEDS: OXYCODONE HCL IR 5 MG TABLET PO PRN (22:21)
[2017-02-07] MEDS: AMPICILLIN SODIUM 1.5 GM in NORMAL SALINE 100 ML IV SCH ×2 (04:37→08:23)
[2017-02-07] MEDS: PREGABALIN 100 MG CAPSULE PO SCH ×3 (05:27→22:19)
[2017-02-07] MEDS: ACYCLOVIR SODIUM 750 MG in NORMAL SALINE 250 ML IV SCH ×3 (05:27→22:19)
--- NOTE | 2017-02-07 07:54 | PROGRESS NOTE E ---
Progress Note NAME: ZEYNEP PENDLETON : 1960 AGE: 56Y DATE: 02/06/2017 ROOM: 532 Time spent managing the patient is 25 minutes. SUBJECTIVE: Patient states that he feels as though he is still generally weak and he does not feel as though he has improved with regard to his mental status. However, he is actually sitting up in bed and ordering lunch from the kitchen on the phone and seems to be doing this very well. In fact, he is getting very specific about his likes and dislikes on the phone, which is much improved from his mental status on admission. He denies fevers, chills, chest pain, shortness of breath. He is having some headaches. OBJECTIVE: VITAL SIGNS: Temperature 97.8, blood pressure 167/90, pulse 73, respirations 18, O2 sat is 98%. GENERAL: He is alert, he is oriented, in no acute distress. He answers questions appropriately. HEENT: Sclerae are nonicteric. Oropharynx has moist mucous membranes. NECK: No JVD. RESPIRATORY: Clear to auscultation. No wheezes or rhonchi. CARDIAC: Regular rate and rhythm. No murmurs, gallops or rubs. ABDOMEN: Soft, nontender, nondistended. Positive bowel sounds. No rebound or guarding. EXTREMITIES: No edema, cyanosis or clubbing. NEUROLOGIC: Cranial nerves intact. Good strength and sensation in all 4 extremities. LABORATORY STUDIES: White blood count 6.9, hemoglobin 12.5, platelets 185. Sodium 142, potassium 4.3, chloride 107, bicarb 27, BUN 27, creatinine 1.4, glucose 84. ASSESSMENT AND PLAN: 1. ENCEPHALOPATHY. Possibly related to encephalitis given patient's history of HIV. Labs with slightly elevated C-reactive protein and CSF with elevated protein. I am still awaiting MRI report and EEG report. Still awaiting further viral CSF studies. Continue empiric antibiotic and antiviral coverage for now. Discuss the case with Infectious Disease tomorrow once further studies are back. 2. HIV. Continue antiretroviral medications. 3. DIABETES. Continue Lantus and sliding scale. 4. HYPERTENSION. Restart patient's home dose of hydrochlorothiazide. 5. CHRONIC PAIN WITH CHRONIC OPIOID DEPENDENCE. Discontinue Dilaudid and start oxycodone. DICTATING PHYSICIAN: PADMINI BEST M.D. [id number] PHY#: [id number] ID: [id number] JOB#: [id number] ACCT: [id number] cc: >
[2017-02-07 07:59] LABS: ABSOLUTE BASOPHILS # (AUTO) 0.1 10^3/uL (0.0-0.2); ABSOLUTE EOSINOPHILS # (AUTO) 0.6 10^3/uL (0.0-0.6); ABSOLUTE LYMPHOCYTES (AUTO) 1.2 10^3/uL (0.5-4.7); ABSOLUTE MONOCYTES (AUTO) 0.3 10^3/uL (0.1-1.4); ABSOLUTE NEUT (AUTO) 4.7 10^3/uL (1.7-8.2); EOSINOPHILS % (AUTO) 8.3 % (0-6); HEMATOCRIT 37.5 % (37.9-51.0); HEMOGLOBIN 12.5 g/dL (13.5-17.0); LYMPHOCYTES % (AUTO) 17.8 % (13-45); MEAN CORPUSCULAR HEMOGLOBIN 30.1 pg (27.0-33.4); MEAN CORPUSCULAR HGB CONC 33.4 g/dL (32.0-36.0); MEAN CORPUSCULAR VOLUME 90 fl (80-97); MONOCYTES % (AUTO) 4.7 % (3-13); RED BLOOD COUNT 4.17 10^6/uL (4.35-5.55); RED CELL DISTRIBUTION WIDTH 13.6 % (11.5-14.0); SEGMENTED NEUTROPHILS % (AUTO) 68.2 % (42-78); WHITE BLOOD COUNT 6.9 10^3/uL (4.0-10.5)
[2017-02-07 08:09] LABS: ABSOLUTE BASOPHILS # (AUTO) 0.1 10^3/uL (0.0-0.2); ABSOLUTE EOSINOPHILS # (AUTO) 0.6 10^3/uL (0.0-0.6); ABSOLUTE LYMPHOCYTES (AUTO) 1.3 10^3/uL (0.5-4.7); ABSOLUTE MONOCYTES (AUTO) 0.4 10^3/uL (0.1-1.4); ABSOLUTE NEUT (AUTO) 4.7 10^3/uL (1.7-8.2); ANION GAP 7 (5-19); BASOPHILS % (AUTO) 0.8 % (0-2); BLOOD UREA NITROGEN 26 mg/dL (7-20); CALCIUM 8.2 mg/dL (8.4-10.2); CARBON DIOXIDE 26 mmol/L (22-30); CHLORIDE 107 mmol/L (98-107); CREATININE RESULT 1.21 mg/dL (0.52-1.25); EOSINOPHILS % (AUTO) 8.4 % (0-6); GLUCOSE 110 mg/dL (75-110); HEMATOCRIT 34.4 % (37.9-51.0); HEMOGLOBIN 11.9 g/dL (13.5-17.0); HGB HCT DIFFERENCE 1.3; LYMPHOCYTES % (AUTO) 18.7 % (13-45); MEAN CORPUSCULAR HEMOGLOBIN 31.1 pg (27.0-33.4); MEAN CORPUSCULAR HGB CONC 34.6 g/dL (32.0-36.0); MEAN CORPUSCULAR VOLUME 90 fl (80-97); MONOCYTES % (AUTO) 5.3 % (3-13); POTASSIUM 3.9 mmol/L (3.6-5.0); RED BLOOD COUNT 3.84 10^6/uL (4.35-5.55); RED CELL DISTRIBUTION WIDTH 13.4 % (11.5-14.0); SEGMENTED NEUTROPHILS % (AUTO) 66.8 % (42-78); SODIUM 140.3 mmol/L (137-145)
[2017-02-07] MEDS: ENOXAPARIN SODIUM INJ 40 MG/0.4 ML DISP.SYRIN SUBCUT SCH (08:32)
[2017-02-07 08:34] LABS: HIV-1 RNA PCR QUANT <20 copies/mL (.)
[2017-02-07] MEDS: CEFTRIAXONE 2 GM/D5W RTU 2 GM/50 ML RTUPB IV SCH (09:50)
[2017-02-07] MEDS: LISINOPRIL 10 MG TABLET PO SCH (09:51)
[2017-02-07] MEDS: THIAMINE HCL 100 MG TABLET PO SCH (09:55)
[2017-02-07] MEDS: HYDROCHLOROTHIAZIDE 25 MG TABLET PO SCH (09:55)
[2017-02-07] MEDS: OXYCODONE HCL IR 5 MG TABLET PO PRN ×2 (09:56→22:19)
[2017-02-07] MEDS: DULOXETINE HCL 30 MG CAPSULE.DR PO SCH (09:57)
[2017-02-07] MEDS: NICOTINE 14 MG/24 HR PATCH.TD24 TD SCH (10:00)
[2017-02-07] MEDS ORDERED: ETRAVIRINE PO SCH (10:00)
[2017-02-07] MEDS: RALTEGRAVIR POTASSIUM 400 MG TABLET PO SCH (10:08)
[2017-02-07] MEDS: LOPINAVIR/RITONAVIR 200-50 MG TABLET PO SCH (10:09)
[2017-02-07] MEDS: ETRAVIRINE PO SCH (10:11)
[2017-02-07] MEDS: VANCOMYCIN HCL 750 MG in DEXTROSE 5%-WATER 250 ML IV SCH (10:37)
--- NOTE | 2017-02-07 12:34 | EEG PRO FEE REPORT ---
EEG INTERPRETATION PATIENT NAME: ZEYNEP PENDLETON ROOM#: 532 ORDER#: [id number] DATE OF STUDY: 02/04/2017 : 1960 REFERRING MD: PADMINI BEST MD REPORT The background activity is slightly slow posteriorly, down to maybe 6 Hz. It is a little faster more anteriorly, but the record is symmetrical and no major amplitude asymmetry is noted. No clear epileptiform or other paroxysmal discharges are seen. 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 INTERPRETING PHYSICIAN: JANIYA GERARD M.D. /: DESTINI TT: 1226 ID: [id number] /: [id number] TD: [id number] JOB: [id number] cc:Boubacar MOLINA >
[2017-02-07] MEDS: INSULIN GLARGINE,HUM.REC.ANLOG 300 UNIT/3 ML INSULN.PEN SUBCUT SCH (15:45)
--- NOTE | 2017-02-07 20:38 | PROGRESS NOTE E ---
Progress Note NAME: ZEYNEP PENDLETON : 1960 AGE: 56Y DATE: 02/07/2017 ROOM: 532 Time spent managing patient including consultation with multiple specialists and time spent in evaluation of patient and answering multiple questions greater than 60 minutes. SUBJECTIVE: Patient has continued intermittent headaches but feels generally better with regard to weakness. His dysmetria is improving. Speech is basically back to normal. His thinking is back to normal. He denies fever, chills, chest pain, shortness of breath. OBJECTIVE: VITAL SIGNS: Temperature 98.1, blood pressure 162/82, pulse is 57, respirations 16, O2 sat 99%. GENERAL: He is alert. He is oriented, in no acute distress. Answers questions appropriately. HEENT: Sclerae are nonicteric. Oropharynx has moist mucous membranes. NECK: No JVD. Midline trachea. RESPIRATORY: Clear to auscultation. No wheezes or rhonchi. CARDIAC: Regular rate and rhythm. No murmurs, gallops, or rubs. ABDOMEN: Soft, nontender, nondistended. Positive bowel sounds. No rebound or guarding. EXTREMITIES: No edema, cyanosis, or clubbing. NEUROLOGIC: Cranial nerves intact. Good strength and sensation in all 4 extremities. LABORATORY: CSF cultures: No growth for 2 days. Blood culture is no growth for 2 days. Urine culture: No growth for 2 days for AFB pending. CBC has white blood count of 7.0, hemoglobin 11.9, platelets 190. Basic metabolic panel unremarkable. Blood glucose of 110. Bacterial antigen panel of the CSF is negative. Linda ink of the CFS negative. HIV PCR is undetectably low. CD4 count 329. ASSESSMENT AND PLAN: 1. ENCEPHALOPATHY RESOLVED. Likely secondary to hypoglycemic attack and postictal state from seizure associated with hypoglycemic attack. With that being said, still awaiting HSV, PCR, and CSF before discontinuing acyclovir. I think we can now discontinue antibacterial medications. I have discussed the case with Dr. Perez of infectious disease at [facility]. She has recommended discontinuation of antibiotics and continuation of IV antiviral in the form of acyclovir for now pending HSV, PCR. She has also recommended adding a GEORGE virus to CSF as well as VDRL to CSF but these are still pending. I have discussed the case also with Dr. Ballard of neurology. EEG was normal. He feels that this likely related to hypoglycemia and associated seizure. He did recommend, however, doing a MRA of the head and neck to rule out a vertebral basilar syndrome. 2. SEIZURE LIKELY RELATED TO HYPOGLYCEMIC STATE. Patient has not had any recurrence. EEG was normal. 3. LEUKOCYTOSIS ALSO LIKELY RELATED TO SEIZURE. Resolved. 4. HYPOGLYCEMIA. Resolved. 5. INSULIN DEPENDENT DIABETES MELLITUS. Continue Lantus 25 units subcutaneous daily and sliding scale insulin. 6. HIV. Continue HIV medications. Viral load is undetectably low. CD4 count is 329. Patient is followed by Nuha Lynne, nurse practitioner of infectious disease in [place], [place]. 7. HYPERTENSION. Continue lisinopril 10 mg daily. Hydrochlorothiazide 25 mg daily. Continue p.r.n. IV hydralazine. 8. CHRONIC PAIN WITH CHRONIC OPIOID DEPENDENCE. Continue Cymbalta and Lyrica. Continue p.r.n. oxycodone. 9. RIGHT HIP PAIN. MRI of the hip shows the hardware, labral tear. Sed rate is normal. C-reactive protein is only marginally elevated. There does not appear to be any sign of infection. Patient will need a followup with Orthopedics after discharge for labral tear. DICTATING PHYSICIAN: PADMINI BEST M.D. [id number] PHY#: [id number] ID: [id number] JOB#: [id number] ACCT: [id number] cc: >
[2017-02-07] MEDS ORDERED: ETRAVIRINE PO ONE (22:15)
[2017-02-07] MEDS ORDERED: RALTEGRAVIR POTASSIUM 400 MG TABLET PO ONE (22:15)
[2017-02-07] MEDS ORDERED: LOPINAVIR/RITONAVIR 200-50 MG TABLET PO ONE (23:00)
[2017-02-08] MEDS: OXYCODONE HCL IR 5 MG TABLET PO PRN ×3 (04:25→16:30)
[2017-02-08 04:47] LABS: ABSOLUTE BASOPHILS # (AUTO) 0.1 10^3/uL (0.0-0.2); ABSOLUTE EOSINOPHILS # (AUTO) 0.7 10^3/uL (0.0-0.6); ABSOLUTE LYMPHOCYTES (AUTO) 1.9 10^3/uL (0.5-4.7); ABSOLUTE MONOCYTES (AUTO) 0.4 10^3/uL (0.1-1.4); ABSOLUTE NEUT (AUTO) 4.8 10^3/uL (1.7-8.2); BASOPHILS % (AUTO) 0.9 % (0-2); HEMATOCRIT 35.2 % (37.9-51.0); HEMOGLOBIN 11.9 g/dL (13.5-17.0); HGB HCT DIFFERENCE 0.5; LYMPHOCYTES % (AUTO) 24.3 % (13-45); MEAN CORPUSCULAR HGB CONC 33.7 g/dL (32.0-36.0); MEAN CORPUSCULAR VOLUME 92 fl (80-97); MONOCYTES % (AUTO) 5.7 % (3-13); RED BLOOD COUNT 3.83 10^6/uL (4.35-5.55); RED CELL DISTRIBUTION WIDTH 13.6 % (11.5-14.0); SEGMENTED NEUTROPHILS % (AUTO) 60.1 % (42-78); WHITE BLOOD COUNT 7.9 10^3/uL (4.0-10.5)
[2017-02-08 04:59] LABS: ANION GAP 7 (5-19); BLOOD UREA NITROGEN 31 mg/dL (7-20); CALCIUM 8.7 mg/dL (8.4-10.2); CARBON DIOXIDE 27 mmol/L (22-30); CHLORIDE 105 mmol/L (98-107); CREATININE RESULT 1.49 mg/dL (0.52-1.25); GLUCOSE 115 mg/dL (75-110); POTASSIUM 4.5 mmol/L (3.6-5.0); SODIUM 138.9 mmol/L (137-145)
[2017-02-08] MEDS: ACYCLOVIR SODIUM 750 MG in NORMAL SALINE 250 ML IV SCH ×3 (05:55→22:18)
[2017-02-08] MEDS: PREGABALIN 100 MG CAPSULE PO SCH ×3 (05:55→22:18)
[2017-02-08] MEDS: AMLODIPINE BESYLATE 5 MG TABLET PO SCH (08:10)
[2017-02-08] MEDS: LOPINAVIR/RITONAVIR 200-50 MG TABLET PO SCH ×2 (08:12→19:45)
[2017-02-08] MEDS: ETRAVIRINE PO SCH ×2 (08:13→19:45)
[2017-02-08] MEDS: RALTEGRAVIR POTASSIUM 400 MG TABLET PO SCH ×2 (08:13→19:45)
[2017-02-08] MEDS: ENOXAPARIN SODIUM INJ 40 MG/0.4 ML DISP.SYRIN SUBCUT SCH (08:19)
[2017-02-08] MEDS: THIAMINE HCL 100 MG TABLET PO SCH (10:20)
[2017-02-08] MEDS: HYDROCHLOROTHIAZIDE 25 MG TABLET PO SCH (10:21)
[2017-02-08] MEDS: DULOXETINE HCL 30 MG CAPSULE.DR PO SCH (10:22)
[2017-02-08] MEDS: NICOTINE 14 MG/24 HR PATCH.TD24 TD SCH (10:22)
[2017-02-08] MEDS: ACETAMINOPHEN 325 MG TABLET PO PRN (11:28)
[2017-02-08] MEDS: INSULIN LISPRO 100 UNIT/ML 3 ML VIAL SUBCUT PRN ×2 (11:57→18:08)
[2017-02-08] MEDS: INSULIN GLARGINE,HUM.REC.ANLOG 300 UNIT/3 ML INSULN.PEN SUBCUT SCH (14:32)
--- NOTE | 2017-02-08 19:08 | PROGRESS NOTE E ---
Progress Note NAME: ZEYNEP PENDLETON : 1960 AGE: 56Y DATE: 02/08/2017 ROOM: 532 TIME SPENT MANAGING PATIENT: Twenty-five minutes. SUBJECTIVE: The patient is feeling much better than he did on admission. He has occasional headache but otherwise has no other neurologic findings anymore. He denies fevers, chills, chest pain or shortness of breath. OBJECTIVE: VITAL SIGNS: Temperature 98.1, blood pressure 160/73, pulse 66, respiratory rate is 17. GENERAL: He is alert, oriented, in no acute distress. She answers questions appropriately. HEENT: Sclerae are nonicteric. Oropharynx has moist mucous membranes. NECK: No JVD. Midline trachea. RESPIRATORY: Clear to auscultation, no wheezes or rhonchi. CARDIAC: Regular rate and rhythm. No murmurs, gallops or rubs. ABDOMEN: Soft, nontender, nondistended. Positive bowel sounds. No rebound, no guarding. EXTREMITIES: Have no edema, cyanosis or clubbing. NEUROLOGIC: Cranial nerves are intact. Normal strength and sensation in all 4 extremities. LABORATORY DATA: CSF, HSV, PCR and CMV are pending. CSF for GEORGE virus DNA pending. CSF for VDRL nonreactive. MRA of the head and neck normal. EEG shows generalized slowing but no epileptiform activity. ASSESSMENT AND PLAN: 1. ENCEPHALOPATHY, RESOLVED. Likely secondary to hyperglycemic attack that precipitated a seizure and subsequent postictal state. That being said, patient has improved since being on acyclovir and did have elevated white blood count on admission as well as elevated protein in CSF. Case was discussed with Dr. Perez of Infectious Disease at [facility] and she recommended continuation of IV acyclovir until we get back CSF, HSV and CMV. If these are negative, we can discontinue antivirals and discharge patient home. If this is positive, the patient will need a 14-day course of IV acyclovir. She also recommended sending CSF for GEORGE virus and performing VDRL which came back nonreactive. Case was discussed with Dr. Ballard of neurology and he feels that this is in fact related to hypoglycemia. 2. SEIZURE RELATE TO HYPOGLYCEMIC STATE. No further recurrence. 3. LEUKOCYTOSIS. Likely related to demargination from seizure. Resolved. 4. HYPOGLYCEMIA. Resolved. 5. INSULIN-DEPENDENT DIABETES MELLITUS. Continue Lantus 25 units subcutaneous daily and sliding scale. 6. HIV. Continue HIV medicines. Viral load is undetectably low. CD4 count is 329. The patient is followed by Nuha Lynne, nurse practitioner at [facility] in [place], [place]. 7. HYPERTENSION. I am going to discontinue lisinopril for now secondary to worsening renal function since this was reinitiated. Continue hydrochlorothiazide 25 mg daily. Start Norvasc 5 mg daily. Continue p.r.n. IV hydralazine. 8. CHRONIC PAIN WITH CHRONIC OPIATE DEPENDENCE. Continue Cymbalta, Lyrica, p.r.n. oxycodone. 9. RIGHT HIP PAIN. MRI of the right hip shows hardware intact with a labral tear. Sed rate is normal. The patient will need to follow up with orthopedics for this after discharge. DICTATING PHYSICIAN: PADMINI BEST M.D. [id number] PHY#: [id number] ID: [id number] JOB#: [id number] ACCT: [id number] cc: >
[2017-02-09 05:19] LABS: ABSOLUTE BASOPHILS # (AUTO) 0.1 10^3/uL (0.0-0.2); ABSOLUTE EOSINOPHILS # (AUTO) 0.6 10^3/uL (0.0-0.6); ABSOLUTE MONOCYTES (AUTO) 0.5 10^3/uL (0.1-1.4); ABSOLUTE NEUT (AUTO) 4.8 10^3/uL (1.7-8.2); BASOPHILS % (AUTO) 1.1 % (0-2); EOSINOPHILS % (AUTO) 7.3 % (0-6); HEMATOCRIT 35.3 % (37.9-51.0); HEMOGLOBIN 12.3 g/dL (13.5-17.0); HGB HCT DIFFERENCE 1.6; LYMPHOCYTES % (AUTO) 24.9 % (13-45); MEAN CORPUSCULAR HGB CONC 34.8 g/dL (32.0-36.0); MEAN CORPUSCULAR VOLUME 89 fl (80-97); MONOCYTES % (AUTO) 6.2 % (3-13); RED BLOOD COUNT 3.95 10^6/uL (4.35-5.55); RED CELL DISTRIBUTION WIDTH 13.6 % (11.5-14.0); SEGMENTED NEUTROPHILS % (AUTO) 60.5 % (42-78)
[2017-02-09] MEDS: PREGABALIN 100 MG CAPSULE PO SCH ×3 (05:21→21:49)
[2017-02-09] MEDS: ACYCLOVIR SODIUM 750 MG in NORMAL SALINE 250 ML IV SCH ×3 (05:21→21:49)
[2017-02-09 05:32] LABS: ANION GAP 7 (5-19); BLOOD UREA NITROGEN 35 mg/dL (7-20); CARBON DIOXIDE 24 mmol/L (22-30); CHLORIDE 108 mmol/L (98-107); CREATININE RESULT 1.46 mg/dL (0.52-1.25); GLUCOSE 81 mg/dL (75-110); POTASSIUM 4.5 mmol/L (3.6-5.0); SODIUM 138.7 mmol/L (137-145)
[2017-02-09] MEDS: RALTEGRAVIR POTASSIUM 400 MG TABLET PO SCH ×2 (07:50→20:00)
[2017-02-09] MEDS: AMLODIPINE BESYLATE 5 MG TABLET PO SCH (07:51)
[2017-02-09] MEDS: LOPINAVIR/RITONAVIR 200-50 MG TABLET PO SCH ×2 (07:51→20:00)
[2017-02-09] MEDS: ENOXAPARIN SODIUM INJ 40 MG/0.4 ML DISP.SYRIN SUBCUT SCH (07:52)
[2017-02-09] MEDS: ETRAVIRINE PO SCH ×2 (08:00→20:00)
[2017-02-09] MEDS: THIAMINE HCL 100 MG TABLET PO SCH (09:24)
[2017-02-09] MEDS: NICOTINE 14 MG/24 HR PATCH.TD24 TD SCH (09:24)
[2017-02-09] MEDS: DULOXETINE HCL 30 MG CAPSULE.DR PO SCH (09:24)
[2017-02-09] MEDS: HYDROCHLOROTHIAZIDE 25 MG TABLET PO SCH (09:24)
[2017-02-09] MEDS: OXYCODONE HCL IR 5 MG TABLET PO PRN ×2 (09:33→15:25)
[2017-02-09] MEDS: ACETAMINOPHEN 325 MG TABLET PO PRN ×2 (09:34→15:24)
[2017-02-09] MEDS: INSULIN GLARGINE,HUM.REC.ANLOG 300 UNIT/3 ML INSULN.PEN SUBCUT SCH (12:51)
[2017-02-09] MEDS: INSULIN LISPRO 100 UNIT/ML 3 ML VIAL SUBCUT PRN (12:51)
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
[2017-02-09] MEDS: KETOROLAC TROMETHAMINE INJ/PF 30 MG/1 ML SDV IV PRN (17:01)
[2017-02-09 20:02] LABS: ANION GAP 8 (5-19); BLOOD UREA NITROGEN 27 mg/dL (7-20); CALCIUM 8.9 mg/dL (8.4-10.2); CARBON DIOXIDE 27 mmol/L (22-30); CHLORIDE 107 mmol/L (98-107); GLUCOSE 85 mg/dL (75-110); POTASSIUM 4.4 mmol/L (3.6-5.0)
[2017-02-10] MEDS: ACYCLOVIR SODIUM 750 MG in NORMAL SALINE 250 ML IV SCH ×3 (05:41→21:15)
[2017-02-10] MEDS: PREGABALIN 100 MG CAPSULE PO SCH ×3 (05:41→21:15)
[2017-02-10] MEDS: AMLODIPINE BESYLATE 5 MG TABLET PO SCH (07:44)
[2017-02-10] MEDS: RALTEGRAVIR POTASSIUM 400 MG TABLET PO SCH ×2 (07:44→19:36)
[2017-02-10] MEDS: LOPINAVIR/RITONAVIR 200-50 MG TABLET PO SCH ×2 (07:44→19:36)
[2017-02-10] MEDS: ENOXAPARIN SODIUM INJ 40 MG/0.4 ML DISP.SYRIN SUBCUT SCH (07:46)
[2017-02-10] MEDS: ETRAVIRINE PO SCH ×2 (08:00→19:36)
[2017-02-10] MEDS: OXYCODONE HCL IR 5 MG TABLET PO PRN ×2 (08:05→18:32)
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
[2017-02-10 09:22] LABS: HSV SOURCE CSF
[2017-02-10] MEDS: DULOXETINE HCL 30 MG CAPSULE.DR PO SCH (10:36)
[2017-02-10] MEDS: HYDROCHLOROTHIAZIDE 25 MG TABLET PO SCH (10:36)
[2017-02-10] MEDS: THIAMINE HCL 100 MG TABLET PO SCH (10:38)
[2017-02-10] MEDS: NICOTINE 14 MG/24 HR PATCH.TD24 TD SCH (10:38)
[2017-02-10] MEDS: KETOROLAC TROMETHAMINE INJ/PF 30 MG/1 ML SDV IV PRN (10:44)
[2017-02-10] MEDS: INSULIN GLARGINE,HUM.REC.ANLOG 300 UNIT/3 ML INSULN.PEN SUBCUT SCH (12:19)
[2017-02-10] MEDS: INSULIN LISPRO 100 UNIT/ML 3 ML VIAL SUBCUT PRN (12:19)
[2017-02-11] MEDS: PREGABALIN 100 MG CAPSULE PO SCH ×2 (05:43→13:40)
[2017-02-11] MEDS: ACYCLOVIR SODIUM 750 MG in NORMAL SALINE 250 ML IV SCH ×2 (05:43→13:41)
[2017-02-11] MEDS: OXYCODONE HCL IR 5 MG TABLET PO PRN ×2 (05:52→13:41)
[2017-02-11] MEDS: RALTEGRAVIR POTASSIUM 400 MG TABLET PO SCH (07:33)
[2017-02-11] MEDS: LOPINAVIR/RITONAVIR 200-50 MG TABLET PO SCH (07:34)
[2017-02-11] MEDS: AMLODIPINE BESYLATE 5 MG TABLET PO SCH (07:34)
[2017-02-11] MEDS: ETRAVIRINE PO SCH (07:34)
[2017-02-11] MEDS: ENOXAPARIN SODIUM INJ 40 MG/0.4 ML DISP.SYRIN SUBCUT SCH (07:34)
[2017-02-11] MEDS: KETOROLAC TROMETHAMINE INJ/PF 30 MG/1 ML SDV IV PRN (10:09)
[2017-02-11] MEDS: HYDROCHLOROTHIAZIDE 25 MG TABLET PO SCH (10:52)
[2017-02-11] MEDS: DULOXETINE HCL 30 MG CAPSULE.DR PO SCH (10:52)
[2017-02-11] MEDS: THIAMINE HCL 100 MG TABLET PO SCH (10:52)
[2017-02-11] MEDS: NICOTINE 14 MG/24 HR PATCH.TD24 TD SCH (10:52)
[2017-02-11] MEDS: INSULIN LISPRO 100 UNIT/ML 3 ML VIAL SUBCUT PRN (12:33)
[2017-02-11] MEDS: INSULIN GLARGINE,HUM.REC.ANLOG 300 UNIT/3 ML INSULN.PEN SUBCUT SCH (12:33)
[2017-02-11 14:52] VITALS: BP 162/70
--- NOTE | 2017-02-11 16:37 | PDOC DISCHARGE SUMMARY ---
General - Admit/Disc Date/PCP Admission Date/Primary Care Provider: 02/04/17 15:54 [facility] Discharge Date: 02/11/17 - Discharge Diagnosis (1) Encephalopathy Is this a current diagnosis for this admission?: YesSummary: Resolved. CSF, blood, urine all negative. Will continue Acyclovir 400 mg po tid x 7 days, CSF viral culture at day #5 is negative (2) HIV (human immunodeficiency virus infection) Is this a current diagnosis for this admission?: YesSummary: Continue current medications (3) Hypertension Is this a current diagnosis for this admission?: YesSummary: Continue current medications (4) Leukocytosis Is this a current diagnosis for this admission?: YesSummary: Resolved (5) Insulin dependent diabetes mellitus Is this a current diagnosis for this admission?: YesSummary: Continue insulin hold Metformin until appetite normalizes (6) Right hip pain Is this a current diagnosis for this admission?: YesSummary: Arthritic changes around hardware, labrum tear. Diclofenac bid and follow up with Dr Vega - Additional Information Resuscitation Status: Full Code Discharge Diet: Diabetic Discharge Activity: Activity As Tolerated, Balance Activity w/Rest Home Medications: Duloxetine HCl [Cymbalta] 60 mg PO DAILY 02/04/17 Etravirine [Intelence] 200 mg PO BID 02/04/17 Hydrochlorothiazide 25 mg PO DAILY 02/04/17 Insulin Glargine,Hum.rec.anlog [Tounormao Solostar] 28 unit SQ DAILY 02/04/17 Lisinopril [Prinivil 10 mg Tablet] 10 mg PO DAILY 02/04/17 Lopinavir/Ritonavir [Kaletra 200-50 mg Tablet] 2 each PO Q12 02/04/17 Pregabalin [Lyrica 100 mg Capsule] 100 mg PO Q8 02/04/17 Raltegravir Potassium [Isentress 400 mg Tablet] 400 mg PO BID 02/04/17 Acyclovir [Acyclovir 400 mg Tablet] 400 mg PO TID #21 tablet 02/11/17 Diclofenac Sodium [Voltaren 50 Mg Tablet.] 50 mg PO BID PRN #30 tablet. Insulin Lispro [Humalog Insulin (Lispro) 100 unit/mL] 0 - 12 unit SUBCUT ACHSP PRN #100 unit 02/11/17 Oxycodone HCl [Oxy-Ir 5 mg Tablet] 10 mg PO Q6HP PRN #30 tablet 02/11/17 History of Present Illness Patient complains of: Altered mental status History of Present Illness: ZEYNEP PENDLETON is a 56 year old male with several weeks history of intermittent confusion for which she has been seen at [facility] as well as [facility]. Patient had episode of confusion today and associated seizure. He had a mild headache after seizure. He has not been having headaches prior to that. He has noted chronic fatigue for the past several weeks, nasal congestion, cough. He denies photophobia. He has chronic neck and back pain that is not worse than usual. Patient medical history is complicated by HIV disease for which he is on antiretrovirals. His last CD4 count was on 08/14/2016 which time it was 487. Patient also has insulin-dependent diabetes and was noted to be hypoglycemic today upon evaluation for seizure and altered mental status. His blood glucose was 53. He does have a history of chronic pain with chronic opiate dependence but his states that he has not been on narcotic pain medication since being discharged from the hospital last week. His hospital records from [facility] are reviewed and for the most part are unremarkable. The MRI of his brain did show one small area of abnormal signal in the conor that could represent small vessel disease, but differential could include encephalitis. Hospital Course Hospital Course: Patient was referred to the hospitalist service for admission. He underwent LP puncture in the ED. Cerebrospinal fluid had elevated protein, normal glucose and negative wbcs. Patient had a mild leucocytosis. Cultures were sent for viral , and AFB. Patient was started on IV Acyclovir pending viral cultures result. Patient had MRI/MRA of the head and neck, which were unremarkable. EEG was done which showed some slowing, but no seizure like activity. Dr Garcia, neurologist, felt EEG was consistent with a hypoglycemia event. The patient has had continued increased somnolence over the last 2 weeks. CSF viral culture at 5 day were negative. We have held his metformin since admission. He has had no hypoglycemic episodes since admission. He will follow up with his infectious disease physician and orthopedics post discharge. Physical Exam Vital Signs: Temp Pulse Resp BP Pulse Ox 97.6 F 68 16 162/70 H 96 02/11/17 14:46 02/11/17 14:46 02/11/17 14:46 02/11/17 14:46 02/11/17 14:46 Intake & Output 02/10/17 02/11/17 02/12/17 06:59 06:59 06:59 Intake Total 2630 1880 Balance 2630 1880 Weight 69.2 kg 69.4 kg General appearance: PRESENT: no acute distress, thin, well-developed Head exam: PRESENT: atraumatic, normocephalic Eye exam: PRESENT: conjunctiva pink, EOMI, PERRLA. ABSENT: scleral icterus Ear exam: PRESENT: normal external ear exam Mouth exam: PRESENT: moist, tongue midline Neck exam: ABSENT: carotid bruit, JVD, lymphadenopathy, thyromegaly Respiratory exam: PRESENT: clear to auscultation leighann. ABSENT: rales, rhonchi, wheezes Cardiovascular exam: PRESENT: RRR. ABSENT: diastolic murmur, rubs, systolic murmur Pulses: PRESENT: normal dorsalis pedis pul Vascular exam: PRESENT: normal capillary refill GI/Abdominal exam: PRESENT: normal bowel sounds, soft. ABSENT: distended, guarding, mass, organolmegaly, rebound, tenderness Rectal exam: PRESENT: deferred Extremities exam: PRESENT: full ROM. ABSENT: calf tenderness, clubbing, pedal edema Neurological exam: PRESENT: alert, awake, oriented to person, oriented to place , oriented to time, oriented to situation, CN II-XII grossly intact. ABSENT: motor sensory deficit Psychiatric exam: PRESENT: appropriate affect, normal mood. ABSENT: homicidal ideation, suicidal ideation Skin exam: PRESENT: dry, intact, warm. ABSENT: cyanosis, rash Results Laboratory Results: 02/09/17 04:58 02/09/17 04:58 Impressions: Head CT 02/04/17 00:00 IMPRESSION: INFLAMMATORY CHANGES RIGHT MAXILLARY SINUS. OTHERWISE, NORMAL BRAIN CT WITHOUT CONTRAST. Chest X-Ray 02/04/17 15:52 IMPRESSION: NO ACUTE RADIOGRAPHIC FINDING IN THE CHEST. Guidance Fluoroscopy 02/05/17 00:00 IMPRESSION: Lumbar puncture under fluoroscopy. No immediate complication. Head MRI 02/05/17 00:00 IMPRESSION: No acute or suspicious findings. Lower Extremity MRI 02/05/17 00:00 IMPRESSION: Mild edema of the right acetabulum probably associated with stress reactive changes or mild osteoarthritis. Tear of the lateral right acetabular labrum. Hardware. Lumbar Puncture 02/05/17 09:08 IMPRESSION: Lumbar puncture under fluoroscopy. No immediate complication. Brain MRI with MRA 02/07/17 00:00 IMPRESSION: NORMAL MRA OF THE [place]. Neck MRA 02/07/17 00:00 IMPRESSION: NO SIGNIFICANT STENOSIS. Qualifiers PATEINT BEING DISCHARGED WITH ANY OF THE FOLLOWING DIAGNOSIS?: No Plan Discharge Plan: Discharge home with Time Spent: Less than 30 Minutes
[2017-02-12 13:02] LABS: CMV DNA PCR QUANT Negative (Negative)
[2017-02-12 21:08] LABS: HSV I DNA Negative (Negative)
== END 2017-02-11 15:26 | disposition home or self-care (01) | DRG 637 ==
LOC: ER 13:00 → EH 15:53 → UNDOADMIN 15:53 → EH 15:54 → 5 19:29
PROVIDERS: ADMIT Family Medicine; ATTEND Family Medicine
PROC: 009U3ZX Drainage of Spinal Canal, Percutaneous Approach, Diagnostic (ICD-10-PCS; principal; 2017-02-05)
PROC: B01B1ZZ Fluoroscopy of Spinal Cord using Low Osmolar Contrast (ICD-10-PCS; 2017-02-05)
DX: E11.649 Type 2 diabetes mellitus with hypoglycemia without coma (principal); G93.41 Metabolic encephalopathy; B20 Human immunodeficiency virus [HIV] disease; G40.89 Other seizures; F11.20 Opioid dependence, uncomplicated; M16.51 Unilateral post-traumatic osteoarthritis, right hip; G89.4 Chronic pain syndrome; F17.200 Nicotine dependence, unspecified, uncomplicated; I10 Essential (primary) hypertension; D72.829 Elevated white blood cell count, unspecified; M25.551 Pain in right hip; Z79.4 Long term (current) use of insulin; Z79.899 Other long term (current) drug therapy; Z87.828 Personal history of other (healed) physical injury and trauma
CPT/HCPCS: 36415; 62270; 70450; 70544; 70547; 70553; 71010; 77003; 80048; 80053; 80202; 80307; 81001; 82607; 82945; 82962; 83036; 83735; 84157; 84439; 84443; 84481; 85025; 85610; 85652; 85730; 86140; 86360; 86403; 86592; 87015; 87040; 87070; 87086; 87116; 87205; 87206; 87210; 87252; 87496; 87529; 87536; 87798; 89050; 93005; 93010; 95819; 99285; A9577; J0133; J0290; J0696; J1170; J1650; J1815; J1885; J3370; J3490; J7030; J7050; J7060

== ENCOUNTER 2017-09-23 13:06 | Emergency (ER) | payer MEDICARE ==
--- NOTE | 2017-09-23 14:37 | ER Document Report ---
ED Medical Screen (RME) - General Chief Complaint: High Blood Pressure Stated Complaint: BLOOD PRESSURE ISSUE Time Seen by Provider: 09/23/17 14:31 Notes: This 56-year-old male patient comes emergency room for elevated blood pressure readings. He has been on lisinopril 10 mg probably as a renal protective dose due to diabetes. He takes hydrochlorthiazide 25 mg. This elevated reading has been going on for 3-4 days, he has not changed any medications. There are no symptoms associated with this. We will check some lab work to be sure there is not another explanation for the climbing blood pressure. I suspect he would benefit just from doubling his lisinopril for now, and he does have an appointment with his primary care provider in 9 days. TRAVEL OUTSIDE OF THE [place] IN LAST 30 DAYS: No - Related Data Allergies/Adverse Reactions: No Known Allergies Allergy (Verified 09/23/17 13:06) Past Medical History - Social History Chew tobacco use (# tins/day): No Frequency of alcohol use: Rare Drug Abuse: None - Past Medical History Cardiac Medical History: Reports: Hx Hypertension Endocrine Medical History: Reports: Hx Diabetes Mellitus Type 2 Renal/ Medical History: Denies: Hx Peritoneal Dialysis Infectious Medical History: Reports: Hx HIV Past Surgical History: Reports: Hx Orthopedic Surgery - Right hip - Immunizations Hx Diphtheria, Pertussis, Tetanus Vaccination: Yes Physical Exam - Vital signs Vitals: Temp Pulse Resp BP Pulse Ox 98.1 F 69 16 172/91 H 100 09/23/17 13:10 09/23/17 13:10 09/23/17 13:10 09/23/17 13:10 09/23/17 13:10 Course - Vital Signs Vital signs: Temp Pulse Resp BP Pulse Ox 98.1 F 69 16 172/91 H 100 09/23/17 13:10 09/23/17 13:10 09/23/17 13:10 09/23/17 13:10 09/23/17 13:10
[2017-09-23 15:51] LABS: ALANINE AMINOTRANSFERASE 46 U/L (21-72); ALBUMIN 3.7 g/dL (3.5-5.0); ALKALINE PHOSPHATASE 53 U/L (38-126); ANION GAP 8 (5-19); ASPARTATE AMINO TRANSFERASE 29 U/L (17-59); BILIRUBIN,DIRECT 0.2 mg/dL (0.0-0.4); BILIRUBIN,TOTAL 0.2 mg/dL (0.2-1.3); BLOOD UREA NITROGEN 30 mg/dL (7-20); CALCIUM 9.5 mg/dL (8.4-10.2); CARBON DIOXIDE 28 mmol/L (22-30); CHLORIDE 104 mmol/L (98-107); GLUCOSE 181 mg/dL (75-110); POTASSIUM 4.9 mmol/L (3.6-5.0); SODIUM 139.6 mmol/L (137-145)
[2017-09-23 15:54] LABS: ABSOLUTE BASOPHILS # (AUTO) 0.1 10^3/uL (0.0-0.2); ABSOLUTE EOSINOPHILS # (AUTO) 0.5 10^3/uL (0.0-0.6); ABSOLUTE LYMPHOCYTES (AUTO) 2.1 10^3/uL (0.5-4.7); ABSOLUTE MONOCYTES (AUTO) 0.4 10^3/uL (0.1-1.4); ABSOLUTE NEUT (AUTO) 5.2 10^3/uL (1.7-8.2); BASOPHILS % (AUTO) 0.8 % (0-2); EOSINOPHILS % (AUTO) 6.3 % (0-6); HEMATOCRIT 38.6 % (37.9-51.0); LYMPHOCYTES % (AUTO) 25.7 % (13-45); MEAN CORPUSCULAR HEMOGLOBIN 30.4 pg (27.0-33.4); MEAN CORPUSCULAR HGB CONC 33.7 g/dL (32.0-36.0); MEAN CORPUSCULAR VOLUME 90 fl (80-97); MONOCYTES % (AUTO) 4.4 % (3-13); PLATELET COUNT 176 10^3/uL (150-450); RED BLOOD COUNT 4.28 10^6/uL (4.35-5.55); RED CELL DISTRIBUTION WIDTH 13.5 % (11.5-14.0); SEGMENTED NEUTROPHILS % (AUTO) 62.8 % (42-78); TOTAL CELLS COUNTED % (AUTO) 100 %; WHITE BLOOD COUNT 8.2 10^3/uL (4.0-10.5)
[2017-09-23 15:55] LABS: APPEARANCE,URINE CLEAR; BILIRUBIN,URINE NEGATIVE (NEGATIVE); COLOR,URINE YELLOW; GLUCOSE, URINE 150 mg/dL (NEGATIVE); KETONES,URINE NEGATIVE (NEGATIVE); LEUKOCYTE ESTERASE,URINE NEGATIVE (NEGATIVE); NITRITE,URINE NEGATIVE (NEGATIVE); PROTEIN,URINE 100 mg/dL (NEGATIVE); URINE SPECIFIC GRAVITY 1.015; UROBILINOGEN,URINE NEGATIVE mg/dL (<2.0)
--- NOTE | 2017-09-23 16:14 | ER Document Report ---
ED General - General Chief Complaint: High Blood Pressure Stated Complaint: BLOOD PRESSURE ISSUE Time Seen by Provider: 09/23/17 14:31 Mode of Arrival: Ambulatory Information source: Patient Notes: 56-year-old man with a history of hypertension, dyslipidemia, chronic kidney disease, COPD, chronic pain. The patient presents to the emergency room with complaints of elevated blood pressure (195/101 at home). He denies chest pain, shortness of breath, abdominal pain. TRAVEL OUTSIDE OF THE [place] IN LAST 30 DAYS: No - HPI Onset: Just prior to arrival Onset/Duration: Gradual Quality of pain: No pain Severity: None Pain Level: Denies Associated symptoms: denies: Chest pain, Fever, Shortness of breath Exacerbated by: Denies Relieved by: Denies Similar symptoms previously: No Recently seen / treated by doctor: No - Related Data Allergies/Adverse Reactions: No Known Allergies Allergy (Verified 09/23/17 13:06) Past Medical History - General Information source: Patient - Social History Smoking Status: Current Every Day Smoker Cigarette use (# per day): Yes - 1 pack per day Chew tobacco use (# tins/day): No Frequency of alcohol use: Rare Drug Abuse: None Lives with: Spouse/Significant other Family History: None Patient has suicidal ideation: No Patient has homicidal ideation: No - Past Medical History Cardiac Medical History: Reports: Hx Hypertension Endocrine Medical History: Reports: Hx Diabetes Mellitus Type 2 Renal/ Medical History: Denies: Hx Peritoneal Dialysis Infectious Medical History: Reports: Hx HIV Past Surgical History: Reports: Hx Orthopedic Surgery - Right hip - Immunizations Hx Diphtheria, Pertussis, Tetanus Vaccination: Yes Review of Systems - Review of Systems Constitutional: denies: Chills, Fever EENT: No symptoms reported Cardiovascular: See HPI. denies: Chest pain, Palpitations, Orthopnea, Dyspnea, Syncope, Dizziness, Lightheaded, Edema Respiratory: No symptoms reported Gastrointestinal: No symptoms reported Genitourinary: No symptoms reported Male Genitourinary: No symptoms reported Musculoskeletal: No symptoms reported Skin: No symptoms reported Hematologic/Lymphatic: No symptoms reported Neurological/Psychological: No symptoms reported Physical Exam - Vital signs Vitals: Temp Pulse Resp BP Pulse Ox 98.1 F 69 16 172/91 H 100 09/23/17 13:10 09/23/17 13:10 09/23/17 13:10 09/23/17 13:10 09/23/17 13:10 Notes: Physical exam: GENERAL: 56-year-old man, alert and oriented 3, no acute distress HEAD: Atraumatic, normocephalic. EYES: Pupils equal round and reactive to light, extraocular movements intact, sclera anicteric, conjunctiva are normal. ENT: TMs normal, nares patent, oropharynx clear without exudates. Moist mucous membranes. NECK: Normal range of motion, supple without obvious mass or JVD. LUNGS: Breath sounds clear to auscultation bilaterally and equal. No wheezes rales or rhonchi. HEART: Regular rate and rhythm without murmurs, rubs or gallops. ABDOMEN: Soft, normoactive bowel sounds. No tenderness to palpation. No guarding, no rebound. No masses appreciated. EXTREMITIES: Normal range of motion, no pitting or edema. No clubbing or cyanosis. NEUROLOGICAL: Cranial nerves II through XII grossly intact. Normal speech, moving all extremities. PSYCH: Normal mood, normal affect. SKIN: Warm, Dry, normal turgor, no rashes or lesions noted. Course - Vital Signs Vital signs: Temp Pulse Resp BP Pulse Ox 98.4 F 69 14 177/103 H 99 09/23/17 17:19 09/23/17 13:10 09/23/17 17:19 09/23/17 17:19 09/23/17 17:19 - Laboratory Result Diagrams: 09/23/17 15:20 09/23/17 15:20 Laboratory results interpreted by me: 09/23/17 09/23/17 09/23/17 15:20 15:20 15:40 RBC 4.28 L Hgb 13.0 L Eosinophils % 6.3 H BUN 30 H Creatinine 1.51 H Est GFR ( Amer) 59 L Est GFR (Non-Af Amer) 48 L Glucose 181 H Total Protein 6.0 L Urine Protein 100 H Urine Glucose (UA) 150 H Urine Blood SMALL H Discharge - Discharge Clinical Impression: Hypertension Condition: Stable Disposition: HOME, SELF-CARE Additional Instructions: As we discussed, the labs look pretty good today. I had like you to bring a copy of today's labs with you to your doctor with the appointment. In the meantime he could start doubling the lisinopril dose: 20 mg daily. If your blood pressure is not that bad in the morning, take 10 mg and if your blood pressure begins to rise in the afternoon, take the second 10 mg. Turned to the emergency room for any chest pain, shortness of breath or any concerns or getting worse. Referrals: STACY,CHRISSY KANG [Primary Care Provider] - Follow up in 3-5 days
[2017-09-23 17:32] VITALS: BP 177/103
== END 2017-09-23 17:30 | disposition home or self-care (01) ==
LOC: ER 13:06
DX: I10 Essential (primary) hypertension (principal); J44.9 Chronic obstructive pulmonary disease, unspecified; E11.9 Type 2 diabetes mellitus without complications; F17.210 Nicotine dependence, cigarettes, uncomplicated; Z21 Asymptomatic human immunodeficiency virus [HIV] infection status
CPT/HCPCS: 36415; 80053; 81001; 84443; 85025; 99283

== ENCOUNTER 2017-11-27 19:35 | Inpatient (IN) | payer OTHER, MEDICARE ==
[2017-11-27 21:13] LABS: ABSOLUTE MONOCYTES (AUTO) 0.3 10^3/uL (0.1-1.4); ABSOLUTE NEUT (AUTO) 3.8 10^3/uL (1.7-8.2); BASOPHILS % (AUTO) 0.4 % (0-2); EOSINOPHILS % (AUTO) 0.2 % (0-6); HEMATOCRIT 38.5 % (37.9-51.0); HEMOGLOBIN 13.1 g/dL (13.5-17.0); LYMPHOCYTES % (AUTO) 19.6 % (13-45); MEAN CORPUSCULAR HEMOGLOBIN 30.2 pg (27.0-33.4); MEAN CORPUSCULAR HGB CONC 34.1 g/dL (32.0-36.0); MEAN CORPUSCULAR VOLUME 89 fl (80-97); MONOCYTES % (AUTO) 5.9 % (3-13); PLATELET COUNT 125 10^3/uL (150-450); RED BLOOD COUNT 4.33 10^6/uL (4.35-5.55); RED CELL DISTRIBUTION WIDTH 13.3 % (11.5-14.0); SEGMENTED NEUTROPHILS % (AUTO) 73.9 % (42-78); TOTAL CELLS COUNTED % (AUTO) 100 %; WHITE BLOOD COUNT 5.1 10^3/uL (4.0-10.5)
[2017-11-27] MEDS: NORMAL SALINE 1000 ML 1,000 ML IV PRN ×2 (21:25→22:16)
[2017-11-27 21:27] LABS: APPEARANCE,URINE CLEAR; BILIRUBIN,URINE NEGATIVE (NEGATIVE); COLOR,URINE YELLOW; GLUCOSE, URINE >=500 mg/dL (NEGATIVE); KETONES,URINE NEGATIVE (NEGATIVE); LEUKOCYTE ESTERASE,URINE NEGATIVE (NEGATIVE); NITRITE,URINE NEGATIVE (NEGATIVE); PROTEIN,URINE 100 mg/dL (NEGATIVE); URINE SPECIFIC GRAVITY 1.011; UROBILINOGEN,URINE NEGATIVE mg/dL (<2.0)
[2017-11-27 21:37] LABS: ALANINE AMINOTRANSFERASE 172 U/L (21-72); ALBUMIN 3.7 g/dL (3.5-5.0); ALKALINE PHOSPHATASE 70 U/L (38-126); ANION GAP 11 (5-19); ASPARTATE AMINO TRANSFERASE 82 U/L (17-59); BILIRUBIN,DIRECT 0.4 mg/dL (0.0-0.4); BILIRUBIN,TOTAL 0.5 mg/dL (0.2-1.3); BLOOD UREA NITROGEN 75 mg/dL (7-20); CALCIUM 8.2 mg/dL (8.4-10.2); CARBON DIOXIDE 23 mmol/L (22-30); CHLORIDE 95 mmol/L (98-107); POTASSIUM 4.6 mmol/L (3.6-5.0); SODIUM 129.1 mmol/L (137-145); TOTAL PROTEIN 6.3 g/dL (6.3-8.2)
[2017-11-27 21:46] LABS: GLUCOSE 539 mg/dL (75-110)
--- NOTE | 2017-11-27 23:23 | RADIOLOGY REPORT (SQ) ---
EXAM DESCRIPTION: CHEST SINGLE VIEW COMPLETED DATE/TIME: 11/27/2017 11:09 pm REASON FOR STUDY: cough COMPARISON: 02/04/2017 EXAM PARAMETERS: NUMBER OF VIEWS: One view. TECHNIQUE: Single frontal radiographic view of the chest acquired. RADIATION DOSE: NA LIMITATIONS: None. FINDINGS: LUNGS AND PLEURA: No acute opacities, masses or pneumothorax. No pleural effusion. MEDIASTINUM AND HILAR STRUCTURES: No masses. Contour normal. HEART AND VASCULAR STRUCTURES: Heart normal in size. Normal vasculature. BONES: No acute findings. HARDWARE: None in the chest. OTHER: No other significant finding. IMPRESSION: NO ACUTE RADIOGRAPHIC FINDING IN THE CHEST. TECHNICAL DOCUMENTATION: JOB ID: [id number] [id number] 2010 [employer]- All Rights Reserved Reading location - IP/workstation name: [email or web address]
--- NOTE | 2017-11-28 00:07 | ER Document Report ---
ED General - General Chief Complaint: High Blood Sugar Stated Complaint: BLOOD SUGAR PROBLEMS Time Seen by Provider: 11/27/17 21:10 Information source: Patient TRAVEL OUTSIDE OF THE [place] IN LAST 30 DAYS: No - HPI Patient complains to provider of: high blood sugar Onset: This morning Associated symptoms: None Exacerbated by: Denies Relieved by: Denies Similar symptoms previously: Yes Recently seen / treated by doctor: No Notes: Pt. has been incarcerated for the last 2 days. He presents here for cough and high blood sugar. He is on weekly trulicity and metformin. His last dose of trulicity was today. - Related Data Allergies/Adverse Reactions: No Known Allergies Allergy (Verified 09/23/17 13:06) Past Medical History - General Information source: Patient - Social History Smoking Status: Former Smoker Chew tobacco use (# tins/day): No Frequency of alcohol use: None Drug Abuse: None Family History: None Patient has suicidal ideation: No Patient has homicidal ideation: No - Past Medical History Cardiac Medical History: Reports: Hx Hypertension Pulmonary Medical History: Reports: None EENT Medical History: Reports: None Neurological Medical History: Reports: None Endocrine Medical History: Reports: Hx Diabetes Mellitus Type 2 Renal/ Medical History: Reports: None. Denies: Hx Peritoneal Dialysis GI Medical History: Reports: None Musculoskeltal Medical History: Reports None Skin Medical History: Reports None Psychiatric Medical History: Reports: None Infectious Medical History: Reports: Hx HIV Past Surgical History: Reports: Hx Orthopedic Surgery - Right hip - Immunizations Hx Diphtheria, Pertussis, Tetanus Vaccination: Yes Review of Systems - Review of Systems Constitutional: No symptoms reported EENT: No symptoms reported Cardiovascular: No symptoms reported Respiratory: Cough. denies: Hurts to breathe, Hemoptysis, Short of breath, Sputum, Wheezing Gastrointestinal: No symptoms reported Genitourinary: No symptoms reported Male Genitourinary: No symptoms reported Musculoskeletal: No symptoms reported Skin: No symptoms reported Hematologic/Lymphatic: No symptoms reported Neurological/Psychological: No symptoms reported Physical Exam - Vital signs Vitals: Temp Pulse Resp BP Pulse Ox 100.5 F H 68 16 137/67 H 98 11/27/17 19:39 11/27/17 19:39 11/27/17 19:39 11/27/17 19:39 11/27/17 19:39 - Notes Notes: PHYSICAL EXAMINATION: GENERAL: Well-appearing, well-nourished and in no acute distress. HEAD: Atraumatic, normocephalic. EYES: Pupils equal round and reactive to light, extraocular movements intact, sclera anicteric, conjunctiva are normal. ENT: Nares patent, oropharynx clear without exudates. Moist mucous membranes. NECK: Normal range of motion, supple without lymphadenopathy LUNGS: Coarse breath sounds left upper lobe. No wheezes rales or rhonchi. HEART: Regular rate and rhythm without murmurs ABDOMEN: Soft, nontender, nondistended abdomen. No guarding, no rebound. No masses appreciated. Musculoskeletal: Normal range of motion, no pitting or edema. No cyanosis. NEUROLOGICAL: Cranial nerves grossly intact. Normal speech. Normal sensory, motor exams PSYCH: Normal mood, normal affect. SKIN: Warm, Dry, normal turgor, no rashes or lesions noted. Course - Re-evaluation Re-evalutation: 11/28/17 00:01 Labs- All tests 24 hr 11/27/17 11/27/17 11/27/17 21:00 21:00 21:00 WBC 5.1 RBC 4.33 L Hgb 13.1 L Hct 38.5 MCV 89 MCH 30.2 MCHC 34.1 RDW 13.3 Plt Count 125 L Seg Neutrophils % 73.9 Lymphocytes % 19.6 Monocytes % 5.9 Eosinophils % 0.2 Basophils % 0.4 Absolute Neutrophils 3.8 Absolute Lymphocytes 1.0 Absolute Monocytes 0.3 Absolute Eosinophils 0.0 Absolute Basophils 0.0 Sodium 129.1 L Potassium 4.6 Chloride 95 L Carbon Dioxide 23 Anion Gap 11 BUN 75 H Creatinine 2.49 H Est GFR ( Amer) 33 L Est GFR (Non-Af Amer) 27 L Glucose 539 H* POC Glucose Calcium 8.2 L Total Bilirubin 0.5 Direct Bilirubin 0.4 Neonat Total Bilirubin Not Reportable Neonat Direct Bilirubin Not Reportable Neonat Indirect Bili Not Reportable AST 82 H ALT 172 H Alkaline Phosphatase 70 Total Protein 6.3 Albumin 3.7 Urine Color YELLOW Urine Appearance CLEAR Urine pH 5.0 Ur Specific [place] 1.011 Urine Protein 100 H Urine Glucose (UA) >=500 H Urine Ketones NEGATIVE Urine Blood SMALL H Urine Nitrite NEGATIVE Urine Bilirubin NEGATIVE Urine Urobilinogen NEGATIVE Ur Leukocyte Esterase NEGATIVE Urine WBC (Auto) 0 Urine RBC (Auto) 0 U Hyaline Cast (Auto) 4 Urine Mucus (Auto) RARE Urine Ascorbic Acid NEGATIVE 11/27/17 21:14 WBC RBC Hgb Hct MCV MCH MCHC RDW Plt Count Seg Neutrophils % Lymphocytes % Monocytes % Eosinophils % Basophils % Absolute Neutrophils Absolute Lymphocytes Absolute Monocytes Absolute Eosinophils Absolute Basophils Sodium Potassium Chloride Carbon Dioxide Anion Gap BUN Creatinine Est GFR ( Amer) Est GFR (Non-Af Amer) Glucose POC Glucose 504 H* Calcium Total Bilirubin Direct Bilirubin Neonat Total Bilirubin Neonat Direct Bilirubin Neonat Indirect Bili AST ALT Alkaline Phosphatase Total Protein Albumin Urine Color Urine Appearance Urine pH Ur Specific [place] Urine Protein Urine Glucose (UA) Urine Ketones Urine Blood Urine Nitrite Urine Bilirubin Urine Urobilinogen Ur Leukocyte Esterase Urine WBC (Auto) Urine RBC (Auto) U Hyaline Cast (Auto) Urine Mucus (Auto) Urine Ascorbic Acid 11/28/17 00:02 Chest X-Ray 11/27/17 22:56 IMPRESSION: NO ACUTE RADIOGRAPHIC FINDING IN THE CHEST. - Vital Signs Vital signs: Temp Pulse Resp BP Pulse Ox 98.9 F 67 17 119/63 97 11/28/17 00:14 11/28/17 00:14 11/28/17 00:14 11/28/17 00:14 11/28/17 00:14 - Laboratory Result Diagrams: 11/27/17 21:00 11/28/17 01:20 Laboratory results interpreted by me: 11/27/17 11/27/17 11/27/17 21:00 21:00 21:00 RBC 4.33 L Hgb 13.1 L Plt Count 125 L Sodium 129.1 L Chloride 95 L Carbon Dioxide BUN 75 H Creatinine 2.49 H Est GFR ( Amer) 33 L Est GFR (Non-Af Amer) 27 L Glucose 539 H* POC Glucose Calcium 8.2 L AST 82 H ALT 172 H Urine Protein 100 H Urine Glucose (UA) >=500 H Urine Blood SMALL H 11/27/17 11/28/17 11/28/17 21:14 00:16 01:20 RBC Hgb Plt Count Sodium 132.5 L Chloride Carbon Dioxide 19 L BUN 69 H Creatinine 2.12 H Est GFR ( Amer) 39 L Est GFR (Non-Af Amer) 33 L Glucose 442 H* POC Glucose 504 H* 474 H* Calcium 7.7 L AST ALT Urine Protein Urine Glucose (UA) Urine Blood 03/08/18 01:21 RBC Hgb Plt Count Sodium Chloride Carbon Dioxide BUN Creatinine Est GFR ( Amer) Est GFR (Non-Af Amer) Glucose POC Glucose 435 H* Calcium AST ALT Urine Protein Urine Glucose (UA) Urine Blood - Diagnostic Test Radiology reviewed: Image reviewed, Reports reviewed Discharge - Discharge Clinical Impression: Uncontrolled diabetes mellitus, Dehydration, Renal insufficiency Disposition: ADMITTED OBSERVATION Admitting Provider: Hospitalist - Dr. Barnes Unit Admitted: Medical Floor
[2017-11-28] MEDS ORDERED: INSULIN REG, HUMAN 100 UNIT/ML 3 ML VIAL (PYX) SUBCUT ONE ×2 (00:22→02:03)
[2017-11-28] MEDS: NORMAL SALINE 1000 ML 1,000 ML IV PRN ×2 (01:29→02:42)
[2017-11-28 01:47] LABS: ANION GAP 10 (5-19); BLOOD UREA NITROGEN 69 mg/dL (7-20); CALCIUM 7.7 mg/dL (8.4-10.2); CARBON DIOXIDE 19 mmol/L (22-30); CHLORIDE 104 mmol/L (98-107); POTASSIUM 4.5 mmol/L (3.6-5.0); SODIUM 132.5 mmol/L (137-145)
[2017-11-28 01:54] LABS: GLUCOSE 442 mg/dL (75-110)
[2017-11-28 02:25] LABS: VENOUS BLOOD BASE EXCESS -3.7 mmol/L; VENOUS BLOOD HCO3 22.8 mmol/L (20-32); VENOUS BLOOD PCO2 47.6 mmHg (35-63); VENOUS BLOOD PH 7.3 (7.30-7.42)
[2017-11-28] MEDS ORDERED: LEVOFLOXACIN 500 MG/D5W RTU 500 MG/100 ML RTUPB IV ONE (02:32)
[2017-11-28] MEDS ORDERED: PROMETHAZINE HCL INJ 25 MG/1 ML VIAL IV PRN (02:57)
[2017-11-28] MEDS ORDERED: NORMAL SALINE 1000 ML 1,000 ML IV PRN (02:57)
[2017-11-28] MEDS ORDERED: ALBUTEROL SULFATE 0.083% NEB 2.5 MG/3 ML AMPUL NEB PRN (02:57)
[2017-11-28] MEDS ORDERED: ACETAMINOPHEN 325 MG TABLET PO PRN (02:57)
[2017-11-28] MEDS ORDERED: DEXTROSE 50%-WATER 25 GM/50 ML DISP.SYRIN IV PRN ×2 (03:03)
[2017-11-28] MEDS ORDERED: DEXTROSE 40% GEL 15 GM TUBE PO PRN ×2 (03:03)
[2017-11-28] MEDS ORDERED: GLUCAGON,HUMAN RECOMB 1 MG INJ IM PRN (03:03)
--- NOTE | 2017-11-28 05:57 | PDOC H&P ---
History of Present Illness Admission Date/PCP: 11/28/17 02:26 Patient complains of: Fever today and uncontrolled blood sugar (unknown duration ). History of Present Illness: ZEYNEP PENDLETON is a 57 year old male with history of HIV (on HAART, follows with [facility]), type 2 diabetes mellitus and hypertension was admitted with above-mentioned complaints. The patient apparently has not been getting his insulin for the last few weeks since he has been incarcerated. He is Trulicity QFriday which he received on 11/22/2017 in addition to metformin when his brought him his own medications. Per ED physician, en route to the hospital, EMS reported that the patient was febrile with 102.2 temperature. The patient complained of having chills and nonproductive cough. He was also having pleuritic chest pain secondary to cough. He said that he always has some shortness of breath chronically for which he uses inhaler. The patient also complained of some abdominal discomfort prior to admission and he said that he felt nauseous but no vomiting. He had diarrhea couple days ago with liquid, nonbloody stool. He denied any urinary symptoms or any focal weakness. In the ED, his temperature was 98.9, heart rate 67, respiratory rate 17, blood pressure 119/63 with oxygen saturation of 97% on room air. His WBC was 5.1 with hemoglobin of 13.1. His blood glucose was 539 with anion gap of 11. His BUN/creatinine was 75/2.49 (up from 35/1.46 on 02/09/2017). His UA and chest x- ray were both negative for any acute findings. He received 12 units of regular insulin 1 and 500 mg Levaquin 1 for presumed bronchitis. Past Medical History Medical History: Other - According to the patient and based on previous records. Cardiac Medical History: Reports: Hypertension Pulmonary Medical History: Reports: None EENT Medical History: Reports: None Neurological Medical History: Reports: None Endocrine Medical History: Reports: Diabetes Mellitus Type 2 Renal/ Medical History: Reports: None GI Medical History: Reports: None Musculoskeltal Medical History: Reports: None Skin Medical History: Reports: None Psychiatric Medical History: Reports: None Infectious Medical History: Reports: HIV - on HAARTs and follows with [facility] in [facility], [place]. Past Surgical History Past Surgical History: Reports: Orthopedic Surgery - Right hip/foot drop. Social History Smoking Status: Former Smoker Cigarettes Packs Per Day: 0.5 - Half a pack a day for 30-40 years. 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 He stopped 3-4 week Drugs: Cocaine, Marijuana Hx Prescription Drug Abuse: No - Advance Directive Resuscitation Status: Full Code Family History Family History: None Parental Family History Reviewed: Yes - No known cardiac or diabetic history in the family per patient. Children Family History Reviewed: No Sibling(s) Family History Reviewed.: Yes Medication/Allergy Home Medications: Duloxetine HCl [Cymbalta] 60 mg PO DAILY 02/04/17 Etravirine [Intelence] 200 mg PO BID 02/04/17 Hydrochlorothiazide 25 mg PO DAILY 02/04/17 Lisinopril [Prinivil 10 mg Tablet] 10 mg PO DAILY 02/04/17 Pregabalin [Lyrica 100 mg Capsule] 100 mg PO Q8 02/04/17 Raltegravir Potassium [Isentress 400 mg Tablet] 400 mg PO BID 02/04/17 Acyclovir [Acyclovir 400 mg Tablet] 400 mg PO TID #21 tablet 02/11/17 Diclofenac Sodium [Voltaren 50 Mg Tablet.] 50 mg PO BID PRN #30 tablet. Oxycodone HCl [Oxy-Ir 5 mg Tablet] 10 mg PO Q6HP PRN #30 tablet 02/11/17 Allergies/Adverse Reactions: No Known Allergies Allergy (Verified 09/23/17 13:06) Review of Systems ROS unobtainable: Other - Pertinent positives and negatives as detailed in the HPI Physical Exam Vital Signs: Temp Pulse Resp BP Pulse Ox 98.9 F 67 17 119/63 97 11/28/17 00:14 11/28/17 00:14 11/28/17 00:14 11/28/17 00:14 11/28/17 00:14 General appearance: PRESENT: no acute distress, well-developed, well-nourished Head exam: PRESENT: atraumatic, normocephalic Eye exam: PRESENT: conjunctiva pink, PERRLA. ABSENT: scleral icterus Mouth exam: PRESENT: moist, tongue midline Neck exam: PRESENT: full ROM. ABSENT: JVD Respiratory exam: PRESENT: clear to auscultation leighann, rhonchi - diffuse. ABSENT : rales, wheezes Cardiovascular exam: PRESENT: RRR. ABSENT: diastolic murmur, rubs, systolic murmur Pulses: PRESENT: normal dorsalis pedis pul GI/Abdominal exam: PRESENT: normal bowel sounds, soft. ABSENT: distended, guarding, rebound, tenderness Rectal exam: PRESENT: deferred Extremities exam: PRESENT: full ROM. ABSENT: pedal edema Neurological exam: PRESENT: alert, awake, oriented to person, oriented to place , oriented to time, oriented to situation, CN II-XII grossly intact. ABSENT: motor sensory deficit Skin exam: PRESENT: dry, intact, warm. ABSENT: cyanosis, rash Results Laboratory Results: CBC: WBC 5.1, hemoglobin 16.1, hematocrit 38.5, MCV 89, RDW 13.3, platelets 125. VBG: PH 7.30, PCO2 47.6, HCO3 22.8. BMP: Sodium 129.1, potassium 4.6, chloride 95, bicarb 23, anion gap 11, BUN 75, creatinine 2.49, blood glucose 539. The calcium 8.2. Total bili 0.5. AST 82, ALT 172. Impressions: Chest X-Ray 11/27/17 22:56 IMPRESSION: NO ACUTE RADIOGRAPHIC FINDING IN THE CHEST. Assessment & Plan - Diagnosis (1) Hyperosmolar non-ketotic state in patient with type 2 diabetes mellitus Is this a current diagnosis for this admission?: Yes Plan: secondary to most likely noncompliance with insulin. He is on diabetic diet while incarcerated. He received his dose of trulicity on 11/22/2017 and he will be able to get this medication since his brought it in. We will add Humalog sliding scale which also can be added to his medication regimen upon discharge. Holding metformin for now given kidney function. (2) Acute renal failure superimposed on stage 3 chronic kidney disease Qualifiers: Acute renal failure type: unspecified Qualified Code(s): N17.9 - Acute kidney failure, unspecified; N18.3 - Chronic kidney disease, stage 3 (moderate) ; N18.3 - Chronic kidney disease, stage 3 (moderate) Is this a current diagnosis for this admission?: Yes Plan: Secondary to prerenal most likely in addition to renal, less likely postrenal. We will continue IV hydration and monitor his kidney function and urine output. Will check a urine osm/specific gravity, urine sodium, creatinine and protein in addition to kidney ultrasound. Will avoid any nephrotoxic medications. His metformin, lisinopril and HCTZ are all on hold for now. (3) Essential hypertension Is this a current diagnosis for this admission?: No Plan: Holding lisinopril and hydrochlorothiazide for now given kidney function. We will continue to monitor and adjust BP medications as indicated. (4) Fever Is this a current diagnosis for this admission?: Yes Plan: prior top admission, possibly secondary to acute bronchitis. His chest x-ray and UA were both negative. We will continue Levaquin for now and give Tamiflu x5 days given the fact that he is immunocompromised and unable to check flu screen. Will follow up blood and urine cultures done in ED. (5) HIV (human immunodeficiency virus infection) Is this a current diagnosis for this admission?: No Plan: Unkown CD4 count and viral load. He is on HAARTs and follows with [facility] in [facility], [place] per patient. He will continue these medications while incarcerated since his brought them in. - Time Time Spent: 50 to 70 Minutes - Inpatient Certification Based on my medical assessment, after consideration of the patient's comorbidities, presenting symptoms, or acuity I expect that the services needed warrant INPATIENT care.: Yes I certify that my determination is in accordance with my understanding of Medicare's requirements for reasonable and necessary INPATIENT services [42 CFR 412.3e].: Yes
[2017-11-28] MEDS: HEPARIN SOD (PORCINE) 5,000 UNIT/ML 1 ML SYRINGE SUBCUT SCH ×3 (06:18→22:03)
[2017-11-28 08:24] LABS: ABSOLUTE MONOCYTES (AUTO) 0.5 10^3/uL (0.1-1.4); ABSOLUTE NEUT (AUTO) 4.1 10^3/uL (1.7-8.2); BASOPHILS % (AUTO) 0.3 % (0-2); EOSINOPHILS % (AUTO) 0.3 % (0-6); HEMATOCRIT 33.6 % (37.9-51.0); HEMOGLOBIN 11.7 g/dL (13.5-17.0); LYMPHOCYTES % (AUTO) 17.9 % (13-45); MEAN CORPUSCULAR HEMOGLOBIN 30.5 pg (27.0-33.4); MEAN CORPUSCULAR HGB CONC 34.7 g/dL (32.0-36.0); MEAN CORPUSCULAR VOLUME 88 fl (80-97); MONOCYTES % (AUTO) 8.5 % (3-13); PLATELET COUNT 105 10^3/uL (150-450); RED BLOOD COUNT 3.83 10^6/uL (4.35-5.55); RED CELL DISTRIBUTION WIDTH 13.2 % (11.5-14.0); TOTAL CELLS COUNTED % (AUTO) 100 %; WHITE BLOOD COUNT 5.6 10^3/uL (4.0-10.5)
--- NOTE | 2017-11-28 08:30 | RADIOLOGY REPORT (SQ) ---
EXAM DESCRIPTION: U/S RETROPERITON (RENAL/AORTA) COMPLETED DATE/TIME: 11/28/2017 6:57 am REASON FOR STUDY: acute on chronic renal failure COMPARISON: 12/17/2016. TECHNIQUE: Dynamic and static grayscale images acquired of the kidneys and bladder and recorded on P ACS. Additional selected color Doppler and spectral images recorded. LIMITATIONS: None. FINDINGS: RIGHT KIDNEY: Normal size. Isoechoic cortical echogenicity. No solid or suspicious masses . No hydronephrosis. No calcifications. LEFT KIDNEY: Normal size. Isoechoic cortical echogenicity. No solid or suspicious masses. No hydron ephrosis. No calcifications. BLADDER: No masses. OTHER FINDINGS: No other significant finding. IMPRESSION: STABLE ISOECHOIC APPEARANCE OF THE KIDNEYS LIKELY DUE TO CHRONIC RENAL DISEASE. NO HYDR ONEPHROSIS OR OTHER ACUTE FINDINGS. TECHNICAL DOCUMENTATION: JOB ID: [id number] [employer]- All Rights Reserved Reading location - IP/workstation name: [facility]
[2017-11-28 08:31] LABS: URINE CREATININE 69.7 mg/dL (22-328); URINE PROTEIN 100.8 mg/dL (<12)
[2017-11-28 08:54] LABS: ALANINE AMINOTRANSFERASE 128 U/L (21-72); ALKALINE PHOSPHATASE 52 U/L (38-126); ANION GAP 10 (5-19); ASPARTATE AMINO TRANSFERASE 60 U/L (17-59); BILIRUBIN,DIRECT 0.1 mg/dL (0.0-0.4); BILIRUBIN,TOTAL 0.3 mg/dL (0.2-1.3); BLOOD UREA NITROGEN 53 mg/dL (7-20); CALCIUM 7.8 mg/dL (8.4-10.2); CARBON DIOXIDE 21 mmol/L (22-30); CHLORIDE 110 mmol/L (98-107); GLUCOSE 91 mg/dL (75-110); POTASSIUM 4.3 mmol/L (3.6-5.0); SODIUM 141.1 mmol/L (137-145); TOTAL PROTEIN 5.2 g/dL (6.3-8.2)
[2017-11-28] MEDS: INSULIN LISPRO 100 UNIT/ML 3 ML VIAL SUBCUT PRN (12:25)
[2017-11-28] MEDS ORDERED: DICLOFENAC SODIUM 50 MG TABLET.DR PO PRN (13:49)
[2017-11-28] MEDS ORDERED: ALBUTEROL SULFATE HFA (90 MCG/PUFF) 8 GM MDI (1 MDI/ER DISP) IH PRN (13:49)
[2017-11-28] MEDS ORDERED: ALBUTEROL SULFATE HFA (90 MCG/PUFF) 200 PUFF/8.5 GM MDI IH PRN (14:02)
[2017-11-28] MEDS: OSELTAMIVIR PHOSPHATE 75 MG CAPSULE PO SCH ×2 (14:27→17:09)
[2017-11-28] MEDS: DOCUSATE SODIUM 100 MG CAPSULE PO PRN ×2 (14:32→17:10)
[2017-11-28] MEDS ORDERED: DULOXETINE HCL 30 MG CAPSULE.DR PO ONE (15:00)
[2017-11-28] MEDS ORDERED: OXYCODONE HCL IR 5 MG TABLET PO ONE (15:00)
[2017-11-28] MEDS ORDERED: HYDROCHLOROTHIAZIDE 25 MG TABLET PO ONE (15:00)
[2017-11-28] MEDS ORDERED: FENTANYL 25 MCG/HR PATCH.TD72 TD SCH (15:00)
[2017-11-28] MEDS ORDERED: RALTEGRAVIR POTASSIUM 400 MG TABLET PO ONE (15:00)
[2017-11-28] MEDS ORDERED: BENAZEPRIL HCL 20 MG TABLET PO ONE (15:00)
[2017-11-28] MEDS ORDERED: AMLODIPINE BESYLATE 5 MG TABLET PO ONE (15:00)
[2017-11-28] MEDS ORDERED: PREGABALIN 75 MG CAPSULE PO ONE (15:00)
[2017-11-28] MEDS ORDERED: RINGERS SOLUTION,LACTATED 1,000 ML IV PRN (16:40)
[2017-11-28] MEDS ORDERED: RINGERS SOLUTION,LACTATED 1,000 ML IV ONE (16:41)
--- NOTE | 2017-11-28 16:43 | Progress Note ---
Provider Note Provider Note: Patient seen and examined and chart reviewed. Patient's homes were reconciled. Will add mealtime insulin to patient's regimen. Will also give a liter of normal saline and continue maintenance fluids. Will check renal function in the a.m. Patient appears to be dehydrated.
[2017-11-28] MEDS ORDERED: (PENDING PHARMACY ID) (Metformin Hcl [Metformin Hcl Er] 1,000 MG) PO SCH (17:00)
[2017-11-28] MEDS: OXYCODONE HCL IR 5 MG TABLET PO SCH (17:09)
[2017-11-28] MEDS: CEFTRIAXONE SODIUM 1,000 MG in NORMAL SALINE 100 ML IV SCH (18:00)
[2017-11-28] MEDS ORDERED: INFLUENZA ADLT QUAD (36MOS+) 2017-18 VAC 0.5 ML SYR IM PRN (18:05)
[2017-11-28] MEDS ORDERED: (PENDING PHARMACY ID) (Etravirine [Intelence] 200 MG) PO SCH (22:00)
[2017-11-28] MEDS ORDERED: LEVOFLOXACIN 500 MG TABLET PO SCH (22:00)
[2017-11-28] MEDS ORDERED: INSULIN GLARGINE,HUM.REC.ANLOG 1,000 UNIT/10 ML UNIT SUBCUT SCH (22:00)
[2017-11-28] MEDS: INSULIN GLARGINE,HUM.REC.ANLOG 300 UNIT/3 ML INSULN.PEN SUBCUT SCH (22:02)
[2017-11-28] MEDS: RALTEGRAVIR POTASSIUM 400 MG TABLET PO SCH (22:03)
[2017-11-28] MEDS: PREGABALIN 75 MG CAPSULE PO SCH (22:03)
[2017-11-29] MEDS: HEPARIN SOD (PORCINE) 5,000 UNIT/ML 1 ML SYRINGE SUBCUT SCH ×3 (05:34→21:22)
[2017-11-29 05:41] LABS: ABSOLUTE EOSINOPHILS # (AUTO) 0.1 10^3/uL (0.0-0.6); ABSOLUTE LYMPHOCYTES (AUTO) 1.7 10^3/uL (0.5-4.7); ABSOLUTE MONOCYTES (AUTO) 0.4 10^3/uL (0.1-1.4); ABSOLUTE NEUT (AUTO) 1.7 10^3/uL (1.7-8.2); BASOPHILS % (AUTO) 0.2 % (0-2); EOSINOPHILS % (AUTO) 1.4 % (0-6); HEMATOCRIT 34.3 % (37.9-51.0); HEMOGLOBIN 11.8 g/dL (13.5-17.0); LYMPHOCYTES % (AUTO) 43.7 % (13-45); MEAN CORPUSCULAR HEMOGLOBIN 30.4 pg (27.0-33.4); MEAN CORPUSCULAR HGB CONC 34.4 g/dL (32.0-36.0); MEAN CORPUSCULAR VOLUME 88 fl (80-97); MONOCYTES % (AUTO) 11.6 % (3-13); PLATELET COUNT 106 10^3/uL (150-450); RED BLOOD COUNT 3.88 10^6/uL (4.35-5.55); RED CELL DISTRIBUTION WIDTH 13.3 % (11.5-14.0); SEGMENTED NEUTROPHILS % (AUTO) 43.1 % (42-78); TOTAL CELLS COUNTED % (AUTO) 100 %; WHITE BLOOD COUNT 3.8 10^3/uL (4.0-10.5)
[2017-11-29 05:57] LABS: ALBUMIN 2.9 g/dL (3.5-5.0); ANION GAP 7 (5-19); CARBON DIOXIDE 23 mmol/L (22-30); CHLORIDE 109 mmol/L (98-107); GLUCOSE 161 mg/dL (75-110); POTASSIUM 4.6 mmol/L (3.6-5.0); SODIUM 139.2 mmol/L (137-145); TOTAL PROTEIN 5.4 g/dL (6.3-8.2)
[2017-11-29 05:59] LABS: ALANINE AMINOTRANSFERASE 114 U/L (21-72); ALKALINE PHOSPHATASE 50 U/L (38-126); ASPARTATE AMINO TRANSFERASE 56 U/L (17-59); BILIRUBIN,DIRECT 0.3 mg/dL (0.0-0.4); BILIRUBIN,TOTAL 0.3 mg/dL (0.2-1.3); BLOOD UREA NITROGEN 40 mg/dL (7-20); CALCIUM 8.1 mg/dL (8.4-10.2)
[2017-11-29] MEDS ORDERED: HYDROCHLOROTHIAZIDE 25 MG TABLET PO SCH (08:00)
[2017-11-29] MEDS: OXYCODONE HCL IR 5 MG TABLET PO SCH ×3 (08:20→19:08)
[2017-11-29] MEDS ORDERED: DARUNAVIR PO SCH (10:00)
[2017-11-29] MEDS ORDERED: (PENDING PHARMACY ID) (Tiotropium Br/Olodaterol Hcl [Stiolto Respimat Inhal Spray] 2 PUFF) IH SCH (10:00)
[2017-11-29] MEDS ORDERED: COBICISTAT PO SCH (10:00)
[2017-11-29] MEDS ORDERED: BENAZEPRIL PO SCH (10:00)
[2017-11-29] MEDS ORDERED: AMLODIPINE BESYLATE PO SCH (10:00)
[2017-11-29] MEDS ORDERED: BENAZEPRIL HCL 20 MG TABLET PO SCH (10:00)
[2017-11-29] MEDS ORDERED: CEFTRIAXONE 1 GM/D5W RTU 1 GM/50 ML RTUPB IV SCH (10:00)
[2017-11-29] MEDS: DOCUSATE SODIUM 100 MG CAPSULE PO PRN ×2 (10:23→19:05)
[2017-11-29] MEDS: RALTEGRAVIR POTASSIUM 400 MG TABLET PO SCH ×2 (10:24→21:29)
[2017-11-29] MEDS: PREGABALIN 75 MG CAPSULE PO SCH ×2 (10:24→21:29)
[2017-11-29] MEDS: DULOXETINE HCL 30 MG CAPSULE.DR PO SCH (10:25)
[2017-11-29] MEDS: AMLODIPINE BESYLATE 5 MG TABLET PO SCH (10:25)
[2017-11-29] MEDS: OSELTAMIVIR PHOSPHATE 75 MG CAPSULE PO SCH (10:34)
[2017-11-29] MEDS ORDERED: METFORMIN HCL 500 MG TABLET PO SCH (12:00)
--- NOTE | 2017-11-29 12:36 | PDOC PROGRESS REPORT ---
Subjective Progress Note for:: 11/29/17 Subjective:: Pt states that he has been urinating a lot. Nursing states that pt has been doing well. Reason For Visit: HYPEROSMOLAR NONKETOTIC STATE Physical Exam Vital Signs: Temp Pulse Resp BP Pulse Ox 98.4 F 62 14 116/69 96 11/28/17 19:35 11/28/17 19:35 11/28/17 19:35 11/28/17 19:35 11/28/17 19:35 Intake & Output 11/28/17 11/29/17 11/30/17 06:59 06:59 06:59 Intake Total 2250 Balance 2250 General appearance: PRESENT: no acute distress, thin, well-nourished Head exam: PRESENT: atraumatic, normocephalic Eye exam: PRESENT: conjunctiva pink, EOMI. ABSENT: scleral icterus Ear exam: PRESENT: normal external ear exam Mouth exam: PRESENT: moist, tongue midline Neck exam: ABSENT: carotid bruit, JVD, lymphadenopathy, thyromegaly Respiratory exam: PRESENT: clear to auscultation leighann. ABSENT: rales, rhonchi, wheezes Cardiovascular exam: PRESENT: RRR. ABSENT: diastolic murmur, rubs, systolic murmur Pulses: PRESENT: normal dorsalis pedis pul Vascular exam: PRESENT: normal capillary refill GI/Abdominal exam: PRESENT: normal bowel sounds, soft, other - Abdomen scaphoid. ABSENT: distended, guarding, mass, organolmegaly, rebound, tenderness Rectal exam: PRESENT: deferred Extremities exam: PRESENT: full ROM, other - Upper and lower extremity muscle wasting. ABSENT: calf tenderness, clubbing, pedal edema Neurological exam: PRESENT: alert, awake, oriented to person, oriented to place , oriented to time, oriented to situation, CN II-XII grossly intact. ABSENT: motor sensory deficit Psychiatric exam: PRESENT: appropriate affect, normal mood. ABSENT: homicidal ideation, suicidal ideation Skin exam: PRESENT: dry, intact, warm. ABSENT: cyanosis, rash Results Laboratory Results: 11/29/17 04:51 11/29/17 04:51 11/29/17 11/29/17 04:51 04:51 WBC 3.8 L RBC 3.88 L Hgb 11.8 L Hct 34.3 L MCV 88 MCH 30.4 MCHC 34.4 RDW 13.3 Plt Count 106 L Seg Neutrophils % 43.1 Lymphocytes % 43.7 Monocytes % 11.6 Eosinophils % 1.4 Basophils % 0.2 Absolute Neutrophils 1.7 Absolute Lymphocytes 1.7 Absolute Monocytes 0.4 Absolute Eosinophils 0.1 Absolute Basophils 0.0 Sodium 139.2 Potassium 4.6 Chloride 109 H Carbon Dioxide 23 Anion Gap 7 BUN 40 H Creatinine 1.68 H Est GFR ( Amer) 52 L Est GFR (Non-Af Amer) 43 L Glucose 161 H Calcium 8.1 L Total Bilirubin 0.3 AST 56 ALT 114 H Alkaline Phosphatase 50 Total Protein 5.4 L Albumin 2.9 L Impressions: Chest X-Ray 11/27/17 22:56 IMPRESSION: NO ACUTE RADIOGRAPHIC FINDING IN THE CHEST. Renal Ultrasound 11/28/17 00:00 IMPRESSION: STABLE ISOECHOIC APPEARANCE OF THE KIDNEYS LIKELY DUE TO CHRONIC RENAL DISEASE. NO HYDRONEPHROSIS OR OTHER ACUTE FINDINGS. Assessment & Plan - Diagnosis (1) Acute renal failure superimposed on stage 3 chronic kidney disease Qualifiers: Acute renal failure type: unspecified Qualified Code(s): N17.9 - Acute kidney failure, unspecified; N18.3 - Chronic kidney disease, stage 3 (moderate) ; N18.3 - Chronic kidney disease, stage 3 (moderate) Is this a current diagnosis for this admission?: Yes Plan: Secondary to dehydration due to medication: We will continue IV fluids. Patient 's renal function has improved. All renally toxic medications have been discontinued. (2) Dehydration Is this a current diagnosis for this admission?: Yes Plan: Secondary to diuretics. Will continue IV fluids (3) Essential hypertension Is this a current diagnosis for this admission?: Yes Plan: She currently on Norvasc 5 mg p.o. daily. Benazepril and HCTZ were discontinued. (4) Fever Is this a current diagnosis for this admission?: Yes Plan: Most likely secondary to HIV. Patient's blood culture and urine culture demonstrated no growth. Patient was restarted on antivirals. Will discontinue Tamiflu do not suspect the patient has flu. (5) HIV (human immunodeficiency virus infection) Is this a current diagnosis for this admission?: No (6) Insulin dependent diabetes mellitus Is this a current diagnosis for this admission?: Yes Plan: Continue current insulin regimen. Metformin discontinued due to creatinine of 1.5. - Time Time Spent with patient: 15-24 minutes
[2017-11-29] MEDS: INSULIN LISPRO 100 UNIT/ML 3 ML VIAL SUBCUT PRN ×2 (15:20→21:29)
[2017-11-29] MEDS: CEFTRIAXONE SODIUM 1,000 MG in NORMAL SALINE 100 ML IV SCH (19:08)
[2017-11-29] MEDS: INSULIN GLARGINE,HUM.REC.ANLOG 300 UNIT/3 ML INSULN.PEN SUBCUT SCH (21:29)
[2017-11-30] MEDS: HEPARIN SOD (PORCINE) 5,000 UNIT/ML 1 ML SYRINGE SUBCUT SCH (05:15)
[2017-11-30 06:03] LABS: ABSOLUTE EOSINOPHILS # (AUTO) 0.1 10^3/uL (0.0-0.6); ABSOLUTE LYMPHOCYTES (AUTO) 1.9 10^3/uL (0.5-4.7); ABSOLUTE MONOCYTES (AUTO) 0.3 10^3/uL (0.1-1.4); ABSOLUTE NEUT (AUTO) 1.9 10^3/uL (1.7-8.2); BASOPHILS % (AUTO) 0.3 % (0-2); HEMATOCRIT 32.8 % (37.9-51.0); HEMOGLOBIN 11.4 g/dL (13.5-17.0); LYMPHOCYTES % (AUTO) 45.6 % (13-45); MEAN CORPUSCULAR HEMOGLOBIN 30.5 pg (27.0-33.4); MEAN CORPUSCULAR HGB CONC 34.7 g/dL (32.0-36.0); MEAN CORPUSCULAR VOLUME 88 fl (80-97); MONOCYTES % (AUTO) 8.1 % (3-13); PLATELET COUNT 116 10^3/uL (150-450); RED BLOOD COUNT 3.72 10^6/uL (4.35-5.55); RED CELL DISTRIBUTION WIDTH 13.3 % (11.5-14.0); TOTAL CELLS COUNTED % (AUTO) 100 %; WHITE BLOOD COUNT 4.3 10^3/uL (4.0-10.5)
[2017-11-30 06:24] LABS: ALANINE AMINOTRANSFERASE 93 U/L (21-72); ALBUMIN 2.7 g/dL (3.5-5.0); ALKALINE PHOSPHATASE 47 U/L (38-126); ANION GAP 5 (5-19); ASPARTATE AMINO TRANSFERASE 42 U/L (17-59); BILIRUBIN,DIRECT 0.2 mg/dL (0.0-0.4); BILIRUBIN,TOTAL 0.2 mg/dL (0.2-1.3); BLOOD UREA NITROGEN 31 mg/dL (7-20); CALCIUM 8.6 mg/dL (8.4-10.2); CARBON DIOXIDE 25 mmol/L (22-30); CHLORIDE 109 mmol/L (98-107); GLUCOSE 66 mg/dL (75-110); POTASSIUM 4.4 mmol/L (3.6-5.0); SODIUM 139.4 mmol/L (137-145); TOTAL PROTEIN 5.1 g/dL (6.3-8.2)
[2017-11-30] MEDS: OXYCODONE HCL IR 5 MG TABLET PO SCH ×2 (07:40→12:15)
[2017-11-30] MEDS: PREGABALIN 75 MG CAPSULE PO SCH (09:18)
[2017-11-30] MEDS: AMLODIPINE BESYLATE 5 MG TABLET PO SCH (09:18)
[2017-11-30] MEDS: RALTEGRAVIR POTASSIUM 400 MG TABLET PO SCH (09:18)
[2017-11-30] MEDS: DULOXETINE HCL 30 MG CAPSULE.DR PO SCH (09:19)
[2017-11-30] MEDS: DOCUSATE SODIUM 100 MG CAPSULE PO PRN (09:20)
[2017-11-30 11:48] VITALS: BP 106/66
--- NOTE | 2017-11-30 12:39 | PDOC DISCHARGE SUMMARY ---
General - Admit/Disc Date/PCP Admission Date/Primary Care Provider: 11/28/17 02:26 Discharge Date: 11/30/17 - Discharge Diagnosis (1) Acute renal failure superimposed on stage 3 chronic kidney disease Is this a current diagnosis for this admission?: Yes Summary: Secondary to medication and dehydration: Patient was placed on IV fluids of renal function has really improved. Patient's renal function is back to presumed normal range. (2) Dehydration Is this a current diagnosis for this admission?: Yes Summary: Pt given IV fluids for volume expansion. (3) Essential hypertension Is this a current diagnosis for this admission?: Yes Summary: Patient's blood pressure has been in appropriate range during hospitalization. Have decreased discontinued all blood pressure medicine. Patient will need a follow PCP for readdressing blood pressure issues if they arise. (4) Fever Is this a current diagnosis for this admission?: Yes Summary: Most likely secondary to patient not receiving antivirals (5) HIV (human immunodeficiency virus infection) Is this a current diagnosis for this admission?: No Summary: Continue HAART therapy (6) Insulin dependent diabetes mellitus Is this a current diagnosis for this admission?: Yes Summary: Patient's home medications have been restarted and patient will be discharged out with sliding scale insulin protocol. - Additional Information Resuscitation Status: Full Code Discharge Diet: Diabetic Discharge Activity: Activity As Tolerated Prescriptions: Albuterol Sulfate [Proair HFA] 2 puff IH Q4HP PRN #1 [email or web address] PRN Reason: For Wheezing Insulin Lispro [Humalog Insulin (Lispro) 100 unit/mL] 2 unit SUBCUT ACHSP PRN # 10 unit PRN Reason: Oxycodone HCl [Oxy-Ir 5 mg Tablet] 5 mg PO QPM #4 tablet Home Medications: Darunavir/Cobicistat [Prezcobix 800 mg-150 mg Tablet] 1 each PO DAILY 11/28/17 Dulaglutide [Trulicity] 1.5 mg SQ WE@1000 11/28/17 Duloxetine HCl [Cymbalta] 30 mg PO DAILY 11/28/17 Etravirine [Intelence] 200 mg PO Q12 11/28/17 Oxycodone HCl [Oxycodone HCl 10 MG Tablet] 10 mg PO BID@0800,1200 11/28/17 Pregabalin [Lyrica 75 mg Capsule] 75 mg PO Q12 11/28/17 Raltegravir Potassium [Isentress 400 mg Tablet] 400 mg PO Q12 11/28/17 Tiotropium Br/Olodaterol HCl [Stiolto Respimat Inhal [place]] 2 puff IH DAILY 05/10 Albuterol Sulfate [Proair HFA] 2 puff IH Q4HP PRN #1 [email or web address] 11/30/17 Insulin Lispro [Humalog Insulin (Lispro) 100 unit/mL] 2 unit SUBCUT ACHSP PRN # 10 unit 11/30/17 Oxycodone HCl [Oxy-Ir 5 mg Tablet] 5 mg PO QPM #4 tablet 11/30/17 History of Present Illness Patient complains of: Fever and uncontrolled blood glucose History of Present Illness: ZEYNEP PENDLETON is a 57 year old male presented with fever and uncontrolled glucose. Hospital Course Hospital Course: Patient is a 57-year-old gentleman that was admitted to our facility facility for fever and uncontrolled glucose. Patient had blood cultures that demonstrated no evidence of infection as well as urine culture. Patient's fever is most likely secondary to patient's HIV. Patient's blood sugars were addressed during hospital stay and patient was placed on sliding scale insulin and blood sugars have been under better control. Patient was noted to have acute renal injury secondary to dehydration and medication. Once patient was given IV fluids and renally toxic medications were discontinued patient's renal function improved. Patient's blood pressure medicines were discontinued due to patient's blood pressure ranging from systolic blood pressure of 106-140 and diastolic blood pressure from 58-79. Due to patient having acute renal injury and being dehydrated felt that it was best for patient to be monitored off of blood pressure medication. If patient's blood pressure becomes an issue would recommend starting with Norvasc. Physical Exam Vital Signs: Temp Pulse Resp BP Pulse Ox 98.4 F 51 L 18 106/66 98 11/30/17 11:20 11/30/17 11:20 11/30/17 11:20 11/30/17 11:20 11/30/17 11:20 Intake & Output 11/29/17 11/30/17 12/01/17 06:59 06:59 07:59 Intake Total 2250 3013 Output Total 6 Balance 2250 3007 General appearance: PRESENT: no acute distress, thin Head exam: PRESENT: atraumatic, normocephalic Eye exam: PRESENT: conjunctiva pink, EOMI. ABSENT: scleral icterus Ear exam: PRESENT: normal external ear exam Mouth exam: PRESENT: moist, tongue midline Neck exam: ABSENT: carotid bruit, JVD, lymphadenopathy, thyromegaly Respiratory exam: PRESENT: clear to auscultation leighann. ABSENT: rales, rhonchi, wheezes Cardiovascular exam: PRESENT: RRR. ABSENT: diastolic murmur, rubs, systolic murmur Pulses: PRESENT: normal dorsalis pedis pul Vascular exam: PRESENT: normal capillary refill GI/Abdominal exam: PRESENT: normal bowel sounds, soft. ABSENT: distended, guarding, mass, organolmegaly, rebound, tenderness Rectal exam: PRESENT: deferred Extremities exam: PRESENT: full ROM. ABSENT: calf tenderness, clubbing, pedal edema Neurological exam: PRESENT: alert, awake, oriented to person, oriented to place , oriented to time, oriented to situation, CN II-XII grossly intact. ABSENT: motor sensory deficit Psychiatric exam: PRESENT: appropriate affect, normal mood. ABSENT: homicidal ideation, suicidal ideation Skin exam: PRESENT: dry, intact, warm. ABSENT: cyanosis, rash Results Laboratory Results: 11/30/17 05:33 11/30/17 05:33 11/30/17 11/30/17 05:33 05:33 WBC 4.3 RBC 3.72 L Hgb 11.4 L Hct 32.8 L MCV 88 MCH 30.5 MCHC 34.7 RDW 13.3 Plt Count 116 L Seg Neutrophils % 44.0 Lymphocytes % 45.6 H Monocytes % 8.1 Eosinophils % 2.0 Basophils % 0.3 Absolute Neutrophils 1.9 Absolute Lymphocytes 1.9 Absolute Monocytes 0.3 Absolute Eosinophils 0.1 Absolute Basophils 0.0 Sodium 139.4 Potassium 4.4 Chloride 109 H Carbon Dioxide 25 Anion Gap 5 BUN 31 H Creatinine 1.42 H Est GFR ( Amer) > 60 Est GFR (Non-Af Amer) 52 L Glucose 66 L Calcium 8.6 Total Bilirubin 0.2 AST 42 ALT 93 H Alkaline Phosphatase 47 Total Protein 5.1 L Albumin 2.7 L Impressions: Chest X-Ray 11/27/17 22:56 IMPRESSION: NO ACUTE RADIOGRAPHIC FINDING IN THE CHEST. Renal Ultrasound 11/28/17 00:00 IMPRESSION: STABLE ISOECHOIC APPEARANCE OF THE KIDNEYS LIKELY DUE TO CHRONIC RENAL DISEASE. NO HYDRONEPHROSIS OR OTHER ACUTE FINDINGS. Qualifiers - * PATEINT BEING DISCHARGED WITH ANY OF THE FOLLOWING DIAGNOSIS?: No Plan Time Spent: Greater than 30 Minutes
[2017-12-04] MEDS ORDERED: (PENDING PHARMACY ID) (Dulaglutide [Trulicity] 1.5 MG) SQ SCH (10:00)
== END 2017-11-30 13:43 | DRG 682 ==
LOC: ER 19:35 → OBSVTOIN 11-28 02:26 → EEVIPCON 11-28 02:26 → EH 11-28 02:26 → 4W 11-28 04:15
PROVIDERS: ADMIT Internal Medicine Geriatric Medicine; ATTEND Internal Medicine Geriatric Medicine
PROC: 3E0F73Z Introduction of Anti-inflammatory into Respiratory Tract, Via Natural or Artificial Opening (ICD-10-PCS; principal; 2017-11-28)
DX: N17.9 Acute kidney failure, unspecified (principal); E11.00 Type 2 diabetes mellitus with hyperosmolarity without nonketotic hyperglycemic-hyperosmolar coma (NKHHC); E11.22 Type 2 diabetes mellitus with diabetic chronic kidney disease; I12.9 Hypertensive chronic kidney disease with stage 1 through stage 4 chronic kidney disease, or unspecified chronic kidney disease; N18.3 Chronic kidney disease, stage 3 (moderate); E86.0 Dehydration; T50.2X5A Adverse effect of carbonic-anhydrase inhibitors, benzothiadiazides and other diuretics, initial encounter; Z21 Asymptomatic human immunodeficiency virus [HIV] infection status; E11.65 Type 2 diabetes mellitus with hyperglycemia; Z79.4 Long term (current) use of insulin; Z79.899 Other long term (current) drug therapy; Z87.891 Personal history of nicotine dependence
CPT/HCPCS: 36415; 71045; 76770; 80048; 80053; 81001; 82570; 82803; 82962; 84156; 84300; 85025; 87040; 87086; 96361; 96365; 99285; J0696; J1644; J1815; J1956; J3490; J7030; J7120

== ENCOUNTER → 2019-03-12 | Outpatient (CLI) | payer OTHER ==
[2019-03-12 14:17] LABS: ALANINE AMINOTRANSFERASE 26 U/L (21-72); ALBUMIN 4.5 g/dL (3.5-5.0); ALKALINE PHOSPHATASE 81 U/L (38-126); ANION GAP 9 (5-19); ASPARTATE AMINO TRANSFERASE 29 U/L (17-59); BILIRUBIN,DIRECT 0.3 mg/dL (0.0-0.4); BILIRUBIN,TOTAL 0.5 mg/dL (0.2-1.3); BLOOD UREA NITROGEN 40 mg/dL (7-20); CALCIUM 9.2 mg/dL (8.4-10.2); CARBON DIOXIDE 28 mmol/L (22-30); CHLORIDE 105 mmol/L (98-107); GLUCOSE 205 mg/dL (75-110); POTASSIUM 4.8 mmol/L (3.6-5.0); SODIUM 142.2 mmol/L (137-145); TOTAL PROTEIN 7.7 g/dL (6.3-8.2)
--- NOTE | 2019-03-12 19:55 | XCELERA REPORT ---
[address] [address] Transthoracic Echocardiogram Report Name: ZEYNEP PENDLETON Age: 58 yrs Gender: Male : 1960 Patient Status: Outpatient Patient Location: Study Date: 03/12/2019 01:18 PM Height: 69 in Weight: 155 lb BSA: 1.9 m2 Procedure: A complete two-dimensional transthoracic echocardiogram was performed (2D, M-mode, spectral and color flow Doppler). Study Quality: Good. Reason For Study: HTN History: HTN. Ordering Physician: FARHAD BROWN Performed By: Nidhi Crocker Interpretation Summary The left ventricle is normal in size. There is normal left ventricular wall thickness. LV EF is > than 65% The left ventricular ejection fraction is within normal limits. Doppler measurements suggest impaired left ventricular relaxation, which is associated with grade I/IV or mild diastolic dysfunction The left ventricular wall motion is normal. There is no thrombus. There is no ventricular septal defect visualized. The right ventricle is normal in size and function. The right atrium is normal. The left atrial size is normal. The interatrial septum is intact with no evidence for an atrial septal defect. There is no Doppler evidence for an interatrial shunt There is no evidence of mitral valve prolapse. There is no mitral valve stenosis. There is a trace amount of mitral regurgitation There is no aortic valvular vegetation. There is no aortic valve stenosis There is no LVOT obstruction. No aortic regurgitation is present. There is no tricuspid stenosis. There is a trace amount of tricuspid regurgitation There is mild pulmonary hypertension by echo RVSP is 36 to 41 mm of Hg , with RA mean of 5 to 10. There is no pulmonic valvular stenosis. There is no pulmonic valvular regurgitation. The aortic root is normal size. The inferior vena cava appeared normal and decreased > 50% with respiration (RAP 5-10 mmHg) There is no pericardial effusion. MMode/2D Measurements & Calculations RVDd: 3.2 cm LVIDd: 5.5 cm FS: 39.4 % Ao root diam: 3.1 cm IVSd: 0.88 cm LVIDs: 3.4 cm EDV(Teich): LVPWd: 1.1 cm 150.2 ml Ao root area: ESV(Teich): 46.1 ml7.5 cm2 EF(Teich): 69.3 % EDV(MOD-sp4): SV(MOD-sp4): 93.7 ml 46.8 ml ESV(MOD-sp4): 46.9 ml EF(MOD-sp4): 50.0 % Doppler Measurements & Calculations MV E max stewart: MV dec slope: Ao V2 max: LV V1 max P.6 cm/sec 167.6 cm/sec 6.0 mmHg MV A max stewart: 393.0 cm/sec2 Ao max P.2 mmHgLV V1 max: 98.7 cm/sec MV dec time: 122.4 cm/sec MV E/A: 0.93 0.23 sec PA V2 max: TR max stewart: Pulm Sys Stewart: 128.6 cm/sec 279.9 cm/sec 81.1 cm/sec PA max P.6 mmHgTR max P.3 mmHg Pulm [place] Stewart: 49.3 cm/sec Pulm A Revs Stewart: 26.4 cm/sec Pulm A Revs Dur: 0.10 sec Pulm S/D: 1.6 Left Ventricle The left ventricle is normal in size. There is normal left ventricular wall thickness. LV EF is > than 65%. The left ventricular ejection fraction is within normal limits. Doppler measurements suggest impaired left ventricular relaxation, which is associated with grade I/IV or mild diastolic dysfunction. The left ventricular wall motion is normal. There is no thrombus. There is no ventricular septal defect visualized. Right Ventricle The right ventricle is normal in size and function. Atria The right atrium is normal. The left atrial size is normal. The interatrial septum is intact with no evidence for an atrial septal defect. There is no Doppler evidence for an interatrial shunt. Mitral Valve There is no evidence of mitral valve prolapse. There is no vegetation seen on the mitral valve. There is no mitral valve stenosis. There is a trace amount of mitral regurgitation. Aortic Valve There is no aortic valvular vegetation. There is no aortic valve stenosis. There is no LVOT obstruction. No aortic regurgitation is present. Tricuspid Valve There is no tricuspid stenosis. There is a trace amount of tricuspid regurgitation. There is mild pulmonary hypertension by echo. RVSP is 36 to 41 mm of Hg , with RA mean of 5 to 10. Pulmonic Valve There is no pulmonic valvular stenosis. There is no pulmonic valvular regurgitation. Great Vessels The aortic root is normal size. The inferior vena cava appeared normal and decreased > 50% with respiration (RAP 5-10 mmHg). Effusions There is no pericardial effusion. : FARHAD BROWN > Sushma Manzo
== END ==
LOC: SP 12:42
PROVIDERS: ATTEND Internal Medicine Pulmonary Disease
DX: R60.9 Edema, unspecified (principal); I10 Essential (primary) hypertension
CPT/HCPCS: 36415; 80053; 83880; 84443; 93306